=== PATIENT | female | born 1950 | race Caucasian/White ===

== ENCOUNTER 2018-02-10 14:30 | Inpatient (IN) | payer MEDICARE ==
[~2018-02-10] VITALS: Ht 165.1 cm; Wt 93.9 kg
[2018-02-13 15:25] VITALS: BP 149/75
[2018-02-13 16:01] LABS: BASOPHILS % (AUTO) 0.2 % (0.0-5.0); HEMATOCRIT 31.5 % (36-48); LYMPHOCYTES % (AUTO) 50.6 % (21.0-51.0); MEAN CORPUSCULAR HEMOGLOBIN 32.5 pg (27.0-33.0); MEAN CORPUSCULAR HGB CONC 34.8 g/dL (32.0-36.0); MEAN CORPUSCULAR VOLUME 93.3 fL (79-99); MONOCYTES % (AUTO) 7.5 % (3.0-13.0); NEUTROPHILS % (AUTO) 37.7 % (40.0-77.0); NUCLEATED RED BLOOD CELLS 0.1 % (0.0-0.19); PLATELET COUNT (AUTO) 303 K/uL (130-400); RED BLOOD CELL COUNT(AUTO) 3.37 MIL/uL (4.00-5.50); RED CELL DISTRIBUTION WIDTH 14.4 % (11.0-15.5); WHITE BLOOD COUNT (AUTO) 5.1 K/uL (4.8-10.8)
[2018-02-13 16:01] LABS: APPEARANCE,URINE Clear (CLEAR); BILIRUBIN,URINE Negative (NEGATIVE); COLOR,URINE Yellow (YELLOW); GLUCOSE, URINE (UA) Negative (NEGATIVE); KETONES,URINE Negative (NEGATIVE); LEUKOCYTE ESTERASE ,URINE Trace (NEGATIVE); NITRATE,URINE Negative (NEGATIVE); OCCULT BLOOD,URINE Negative (NEGATIVE); PH,URINE 5.5 (5.0-8.0); PROTEIN,URINE Trace (NEGATIVE); UROBILINOGEN,URINE 0.2 mg/dL (0.2-1.0)
[2018-02-13 16:15] LABS: INR 1.01 (0.85-1.15); PARTIAL THROMBOPLASTIN TIME 25.3 SEC (26.3-35.5); PROTHROMBIN TIME 10.6 SEC (9.6-11.6)
[2018-02-13 16:28] LABS: CREATININE 0.7 mg/dL (0.5-1.5); POTASSIUM 3.7 mmol/L (3.5-5.1)
[2018-02-13] MEDS ORDERED: LEVO100T12 PO (16:31)
[2018-02-13] MEDS ORDERED: BACI1TAB3 PO (16:31)
[2018-02-13] MEDS ORDERED: BRIM5DRO OU (16:31)
[2018-02-13] MEDS ORDERED: [UNRECOGNIZED DRUG - CODE] PO (16:31)
[2018-02-13] MEDS ORDERED: [UNRECOGNIZED DRUG - OTHER] OU (16:31)
[2018-02-13] MEDS ORDERED: MULT1CAP32 PO (16:31)
[2018-02-13 16:52] LABS: BACTERIA,URINE Rare /HPF (None Seen); RBC,URINE 0-1 /HPF (0-1); SQUAMOUS EPITHELIAL CELL,UR Rare /HPF (0-2)
[2018-02-16] VITALS (21 sets, daily range): BP systolic 137–169; BP diastolic 60–96
[2018-02-16] MEDS: CEFAZOLIN SODIUM 1 GM VIAL IVP SCH ×3 (09:30→18:19)
[2018-02-16] MEDS ORDERED: LACTATED RINGERS 1000ML 1,000 ML IV ONE (09:47)
[2018-02-16] MEDS ORDERED: CEFAZOLIN SODIUM 1 GM VIAL ONE (09:57)
[2018-02-16] MEDS ORDERED: TRANEXAMIC ACID 1000MG/10ML IV ONE (09:58)
[2018-02-16] MEDS ORDERED: BUPIVACAINE/EPI/PF 0.25% 30ML VIAL IJ ONE (09:58)
[2018-02-16] MEDS ORDERED: CELECOXIB 200 MG CAP ONE (10:49)
[2018-02-16] MEDS ORDERED: ACETAMINOPHEN EXTRA STRENGTH 500 MG TABLET ONE (10:49)
[2018-02-16] MEDS ORDERED: KETOROLAC TROMETHAMINE 15MG/ML ONE (10:49)
[2018-02-16] MEDS ORDERED: OXYCODONE HCL 10 MG TAB.SR.12H PO ONE (10:50)
[2018-02-16] MEDS ORDERED: PROPOFOL 10 MG/ML 20ML VIAL IV ONE (11:51)
[2018-02-16] MEDS ORDERED: GLYCOPYRROLATE 0.2 MG/ML 5 ML VIAL ONE (11:51)
[2018-02-16] MEDS ORDERED: DEXAMETHASONE SOD PHOSPHATE 10MG/ML 1ML VIAL ONE (11:51)
[2018-02-16] MEDS ORDERED: LIDOCAINE PF 2% 5ML ABBOJECT ONE (11:51)
[2018-02-16] MEDS ORDERED: FENTANYL CITRATE PF 50 MCG/1 ML 2ML VIAL ONE (11:52)
[2018-02-16] MEDS ORDERED: MIDAZOLAM HCL 1 MG/ML 2ML VIAL ONE (11:52)
[2018-02-16] MEDS ORDERED: ROPIVACAINE 0.5% 5MG/ML 30ML IJ ONE (12:02)
[2018-02-16] MEDS ORDERED: FERROUS FUMARATE 324 MG TABLET PO PRN (13:45)
[2018-02-16] MEDS ORDERED: POTASSIUM CHLORIDE 10% ELIXIR 20 MEQ/15 ML UDCUP PO PRN (13:45)
[2018-02-16] MEDS ORDERED: ACETAMINOPHEN 325 MG TAB PO PRN (13:45)
[2018-02-16] MEDS ORDERED: POTASSIUM CHLORIDE 20MEQ/100ML 100 ML IV PRN (13:45)
[2018-02-16] MEDS ORDERED: POTASSIUM CHLORIDE 20 MEQ ERTAB PO PRN (13:45)
[2018-02-16] MEDS ORDERED: TRAMADOL HCL 50 MG TABLET PO PRN (13:45)
[2018-02-16] MEDS ORDERED: CALCIUM CARBONATE 500 MG TABLET PO PRN (13:45)
[2018-02-16] MEDS ORDERED: TEMAZEPAM 15 MG CAPSULE PO PRN (13:45)
[2018-02-16] MEDS ORDERED: DiphenhydrAMINE HCL 50 MG/ML VIAL IVP PRN (13:45)
[2018-02-16] MEDS ORDERED: ACETAMINOPHEN EXTRA STRENGTH 500 MG TABLET PO PRN (13:45)
[2018-02-16] MEDS ORDERED: OXYCODONE HCL 5 MG TAB PO PRN (13:45)
[2018-02-16] MEDS ORDERED: LIDOCAINE HCL-MPF 1% 2ML VIAL IVP PRN (13:45)
[2018-02-16] MEDS ORDERED: MEPERIDINE-PF 25 MG/ML SYG ONE (14:44)
[2018-02-16] MEDS: SODIUM CHLORIDE 0.9% 1000ML 1,000 ML IV SCH ×2 (18:19→23:41)
[2018-02-16] MEDS: KETOROLAC TROMETHAMINE 15MG/ML IV PRN ×2 (18:29→23:34)
[2018-02-16] MEDS ORDERED: CEFAZOLIN 2GM / 50 ML 50 ML IV SCH (18:45)
[2018-02-16] MEDS: ONDANSETRON HCL MDV 20ML 2 MG/ML VIAL IVP PRN ×2 (18:45→22:51)
[2018-02-16] MEDS: PREGABALIN 25 MG CAP PO SCH (20:19)
[2018-02-16] MEDS: FAMOTIDINE 20MG TAB 20 MG TAB PO SCH (20:19)
[2018-02-16] MEDS: MULTIVITAMIN TABLET PO SCH (20:19)
[2018-02-16] MEDS: CELECOXIB 200 MG CAP PO SCH (20:19)
[2018-02-16] MEDS: ASPIRIN 325 MG TABLET PO SCH (20:19)
[2018-02-16] MEDS ORDERED: LATANOPROST 2.5 ML DROPS OU SCH (21:00)
[2018-02-16] MEDS: OXYCODONE HCL 5 MG TAB PO PRN (22:52)
[2018-02-17 00:46] VITALS: BP 157/87
[2018-02-17] MEDS: CEFAZOLIN SODIUM 1 GM VIAL IVP SCH (02:34)
[2018-02-17 04:38] VITALS: BP 132/68
[2018-02-17 05:31] LABS: HEMATOCRIT 23.6 % (36-48); MEAN CORPUSCULAR HEMOGLOBIN 33.4 pg (27.0-33.0); MEAN CORPUSCULAR HGB CONC 35.5 g/dL (32.0-36.0); PLATELET COUNT (AUTO) 260 K/uL (130-400); RED BLOOD CELL COUNT(AUTO) 2.51 MIL/uL (4.00-5.50); RED CELL DISTRIBUTION WIDTH 14.3 % (11.0-15.5); WHITE BLOOD COUNT (AUTO) 7.2 K/uL (4.8-10.8)
[2018-02-17 05:41] LABS: CREATININE 0.8 mg/dL (0.5-1.5); POTASSIUM 4.2 mmol/L (3.5-5.1)
[2018-02-17] MEDS ORDERED: LEVOTHYROXINE 100 MCG TABLET PO SCH (07:30)
[2018-02-17 07:41] VITALS: BP 132/67
[2018-02-17] MEDS: FAMOTIDINE 20MG TAB 20 MG TAB PO SCH (08:17)
[2018-02-17] MEDS: CELECOXIB 200 MG CAP PO SCH (08:17)
[2018-02-17] MEDS: ASPIRIN 325 MG TABLET PO SCH (08:17)
[2018-02-17] MEDS: PREGABALIN 25 MG CAP PO SCH (08:17)
[2018-02-17] MEDS: MULTIVITAMIN TABLET PO SCH (08:17)
[2018-02-17] MEDS: OXYCODONE HCL 5 MG TAB PO PRN ×2 (08:17→12:04)
[2018-02-17] MEDS ORDERED: ZINC PO SCH (09:00)
[2018-02-17] MEDS ORDERED: CALCIUM PO SCH (09:00)
[2018-02-17] MEDS ORDERED: TIMOLOL OU SCH (09:00)
[2018-02-17] MEDS ORDERED: POLYETHYLENE GLYCOL 3350 17 GM POWD.PACK PO SCH (09:00)
[2018-02-17] MEDS ORDERED: BRIMONIDINE TARTRATE OU SCH (09:00)
[2018-02-17] MEDS: BACILLUS COAGULANS PO SCH ×2 (09:00→12:00)
[2018-02-17] MEDS ORDERED: MAGNESIUM PO SCH (09:00)
[2018-02-17 10:52] VITALS: BP 136/64
[2018-02-17] MEDS: KETOROLAC TROMETHAMINE 15MG/ML IV PRN (13:36)
[2018-02-17] MEDS ORDERED: ASPI-1012 PO (18:30)
[2018-02-17] MEDS ORDERED: FERR324T10 PO (18:30)
[2018-02-17] MEDS ORDERED: HYDR-309 PO (18:30)
[2018-02-19] MEDS ORDERED: BISACODYL 10 MG SUPP.RECT RC PRN (13:45)
== END 2018-02-17 19:30 | disposition home health service (06) | DRG 470 ==
LOC: EDBD 14:30 → EDSTATUS 02-13 14:30 → DAHIP 02-16 08:54 → 4AH 02-16 15:10
PROVIDERS: ADMIT Orthopaedic Surgery; ATTEND Orthopaedic Surgery
PROC: 0SRD0J9 Replacement of Left Knee Joint with Synthetic Substitute, Cemented, Open Approach (ICD-10-PCS; principal; 2018-02-16 11:52)
DX: M17.12 Unilateral primary osteoarthritis, left knee (principal); E03.9 Hypothyroidism, unspecified; G89.29 Other chronic pain; H40.9 Unspecified glaucoma; Z80.9 Family history of malignant neoplasm, unspecified; Z90.49 Acquired absence of other specified parts of digestive tract; Z90.710 Acquired absence of both cervix and uterus; Z90.10 Acquired absence of unspecified breast and nipple
CPT/HCPCS: 36415; 80048; 81001; 85025; 85027; 85610; 85730; 88305; 88311; 96374; A4218; J0690; J1100; J1885; J2001; J2175; J2250; J2704; J2795; J3010; J3490; J7030; J7120

== ENCOUNTER 2018-12-14 12:14 | Inpatient (IN) | payer MEDICARE | END 2019-01-01 20:24 | LOC: EDH 12:14 → EDHIP 12:43 → 2AH 13:09 | PROC: 0PBB0ZZ Excision of Left Clavicle, Open Approach (ICD-10-PCS; principal; 2018-12-15 15:00) | PROC: 0PB00ZZ Excision of Sternum, Open Approach (ICD-10-PCS; 2018-12-15 15:00) | DX: A41.52 Sepsis due to Pseudomonas (principal); M86.9 Osteomyelitis, unspecified; C90.00 Multiple myeloma not having achieved remission; N18.4 Chronic kidney disease, stage 4 (severe); N17.9 Acute kidney failure, unspecified; I34.0 Nonrheumatic mitral (valve) insufficiency; N18.9 Chronic kidney disease, unspecified; I12.9 Hypertensive chronic kidney disease with stage 1 through stage 4 chronic kidney disease, or unspecified chronic kidney disease; I13.10 Hypertensive heart and chronic kidney disease without heart failure, with stage 1 through stage 4 chronic kidney disease, or unspecified chronic kidney disease; Z16.24 Resistance to multiple antibiotics ==

== ENCOUNTER 2019-02-07 08:09 | Inpatient (IN) | payer MEDICARE | END 2019-02-13 13:55 | disposition home or self-care (01) | LOC: 2DH 08:09 → 2CH 02-09 06:04 → 2AH 02-10 23:37 → 2CV 02-08 16:46 | PROC: 02RG08Z Replacement of Mitral Valve with Zooplastic Tissue, Open Approach (ICD-10-PCS; principal; 2019-02-08 15:51) | DX: I33.0 Acute and subacute infective endocarditis (principal); J96.90 Respiratory failure, unspecified, unspecified whether with hypoxia or hypercapnia; M86.9 Osteomyelitis, unspecified; N18.9 Chronic kidney disease, unspecified; I12.9 Hypertensive chronic kidney disease with stage 1 through stage 4 chronic kidney disease, or unspecified chronic kidney disease; I27.20 Pulmonary hypertension, unspecified; I34.0 Nonrheumatic mitral (valve) insufficiency; I05.9 Rheumatic mitral valve disease, unspecified ==

== ENCOUNTER → 2019-03-18 | Outpatient (CLI) | payer MEDICARE ==
[~2019-03-18] MED LIST: AMLO5TAB9 PO; CYCL5TAB PO; FERR325T22 PO; LEVO100T12 PO; MULT1CAP32 PO; PANT40TA25 PO; VALA500T38 PO
== END | disposition home or self-care (01) ==
LOC: SHCH 13:44
PROVIDERS: ATTEND Internal Medicine Cardiovascular Disease
DX: I34.0 Nonrheumatic mitral (valve) insufficiency (principal); I10 Essential (primary) hypertension; Z95.2 Presence of prosthetic heart valve
CPT/HCPCS: 93306

== ENCOUNTER 2020-02-16 13:22 | Inpatient (IN) | payer MEDICARE ==
[~2020-02-16] VITALS: Ht 167.6 cm; Wt 84.1 kg
[~2020-02-16 13:22] MED LIST changes: -VALA500T38 PO; +VALA500T42 PO
[2020-02-16 14:09] LABS: BASOPHILS % (AUTO) 0.5 % (0.0-5.0); EOSINOPHILS % (AUTO) 3.3 % (0.0-8.0); LYMPHOCYTES % (AUTO) 28.2 % (21.0-51.0); MEAN CORPUSCULAR HEMOGLOBIN 37.9 pg (27.0-33.0); MEAN CORPUSCULAR HGB CONC 33.5 g/dL (32.0-36.0); MEAN CORPUSCULAR VOLUME 112.9 fL (79-99); MONOCYTES % (AUTO) 13.3 % (3.0-13.0); NEUTROPHILS % (AUTO) 52.9 % (40.0-77.0); PLATELET COUNT (AUTO) 54 K/uL (130-400)
[2020-02-16 14:21] LABS: PARTIAL THROMBOPLASTIN TIME 29.4 SEC (26.3-35.5); PROTHROMBIN TIME 10.8 SEC (9.6-11.6)
[2020-02-16 14:23] LABS: CREATININE 3.4 mg/dL (0.5-1.5); POTASSIUM 4.2 mmol/L (3.5-5.1)
[2020-02-16 14:29] LABS: ALBUMIN 2.9 g/dL (3.5-5.0); BILIRUBIN,TOTAL 0.8 mg/dL (0.2-1.0); TOTAL PROTEIN, SERUM 6.9 g/dL (6.0-8.3)
[2020-02-16 14:33] LABS: HEMATOCRIT 15.8 % (36-48)
[2020-02-16 14:34] LABS: B-TYPE NATRIURETIC PEPTIDE 414 pg/mL (0-100)
[2020-02-16 15:09] LABS: BAND NEUTROPHILS % (MANUAL) 9 % (0-2); EOSINOPHILS % (MANUAL) 6 % (1-6); LYMPHOCYTES % (MANUAL) 30 % (22-44); MAN.DIFF COMMENT-IMPRESSION MANUAL DIFFERENTIAL; MONOCYTES % (MANUAL) 7 % (2-9); SEGMENTED NEUTROPHILS % 48 % (40-70)
[2020-02-16 15:11] LABS: PLATELET MORPHOLOGY COMMENT MARKED DECREASE
[2020-02-16] MEDS ORDERED: ONDANSETRON HCL 4 MG/2 ML VIAL IVP PRN (15:15)
[2020-02-16] MEDS ORDERED: ACETAMINOPHEN 325 MG TAB PO PRN (15:15)
[2020-02-16 17:59] VITALS: BP 137/82
--- NOTE | 2020-02-16 18:35 | NUR ---
NOTE CAME IN FROM HOME WITH DX SYMPTOMATIC ANEMIA. SHE HAS HBG 5.3 WILL GET ONE UNIT OF PRBC. SHE HAS ORDERS FOR CONSULTS WITH NEPHROLOGY AND ONCOLOGY. STABLE UPON ARRIVAL AND SHE HAS GOTTEN BLOOD TRANSFUSED BEFORE. SHE HAS O2 AT 2LNC BECAUSE SLIGHT SOB.
[2020-02-16] MEDS ORDERED: LENA5CAP PO (18:41)
[2020-02-16] MEDS ORDERED: LEVO112T7 PO (18:41)
[2020-02-16] MEDS ORDERED: SODIUM CHLORIDE 0.9% 250 ML IV ONE (18:44)
[2020-02-16 18:55] VITALS: BP_SYST 128; BP_SYST 144; BP_DIAS 55; BP_DIAS 68
[2020-02-16 19:00] VITALS: BP 128/55
[2020-02-16 19:29] LABS: RETICULOCYTE % (AUTO) 7.52 % (0.42-2.23)
[2020-02-16 19:30] VITALS: BP 127/59
[2020-02-16 20:23] LABS: THYROID STIMULATING HORMONE 0.86 uIU/mL (0.36-3.74); URIC ACID 7.9 mg/dL (2.6-7.2)
[2020-02-16] MEDS: FAMOTIDINE/PF 20 MG/2 ML VIAL IV SCH (21:45)
[2020-02-16 22:49] LABS: HEMATOCRIT 18.3 % (36-48)
[2020-02-16 23:17] VITALS: BP 118/53
[2020-02-17 02:40] LABS: % IRON SATURATION 63.6 % (22-44)
[2020-02-17 03:15] VITALS: BP 136/68
[2020-02-17 05:45] LABS: BASOPHILS % (AUTO) 0.8 % (0.0-5.0); EOSINOPHILS % (AUTO) 3.9 % (0.0-8.0); HEMATOCRIT 21.1 % (36-48); LYMPHOCYTES % (AUTO) 26.3 % (21.0-51.0); MEAN CORPUSCULAR HEMOGLOBIN 34.5 pg (27.0-33.0); MEAN CORPUSCULAR HGB CONC 33.6 g/dL (32.0-36.0); MEAN CORPUSCULAR VOLUME 102.4 fL (79-99); MONOCYTES % (AUTO) 13.4 % (3.0-13.0); NEUTROPHILS % (AUTO) 54.2 % (40.0-77.0); NUCLEATED RED BLOOD CELLS 9.1 % (0.0-0.19); PLATELET COUNT (AUTO) 44 K/uL (130-400); RED BLOOD CELL COUNT(AUTO) 2.06 MIL/uL (4.00-5.50); RED CELL DISTRIBUTION WIDTH 20.1 % (11.0-15.5); WHITE BLOOD COUNT (AUTO) 6.4 K/uL (4.8-10.8)
[2020-02-17 06:02] LABS: CREATININE 3.4 mg/dL (0.5-1.5)
[2020-02-17 08:00] VITALS: BP 131/66
[2020-02-17] MEDS: LENALIDOMIDE 5 MG PO SCH (09:00)
[2020-02-17] MEDS ORDERED: PHARMACY COMMUNICATION MISC SCH (09:00)
[2020-02-17] MEDS ORDERED: EPOETIN ALFA 10,000 UNIT/ML VIAL SQ SCH (09:30)
[2020-02-17] MEDS ORDERED: DEXAMETHASONE 10MG/ML 1ML VIAL 10 MG in SODIUM CHLORIDE 0.9% 50 ML IV SCH (09:30)
[2020-02-17] MEDS ORDERED: DEXAMETHASONE SOD PHOSPHATE 10MG/ML 1ML VIAL ONE (11:00)
[2020-02-17] MEDS ORDERED: SODIUM CHLORIDE 0.9% 250 ML IV ONE (11:00)
[2020-02-17 11:50] VITALS: BP 138/67
--- NOTE | 2020-02-17 12:43 | NUR ---
ANTHONY CRUZ HAS COME IN TO SEE PATIENT CONSULT FOR BRADYCARDIA WITH 2.2 SECOND PAUSE EARLIER THIS AM. PATIENT IS REQUESTING TO LEAVE AFTER BLOOD TRANSFUSION. DR CRUZ OKAYED FOR DC ONCE HGB IS HIGHER AND PATIENT IS ASYMPTOMATIC. SHE UNDERWENT CT SCAN ABDOMEN AND PELVIS FOR EVALUATION OF BILATERAL HYDRONEPHROSIS. BLADDER SCAN WAS PERFORMED EARLIER POSTVOIDAL AND SHE HAD 18CC RESIDUAL ACCORDING TO SCANNER. DR PAL INFORMED. DR FENTON NEPHROLOGY CAME BY ABOUT 30 MINUTES AGO WELL AND HE RECOMMENDED CT TO EVALUATE NEED FOR NEPHROSTOMY TUBES IF NEEDED.
[2020-02-17] MEDS: PANTOPRAZOLE SODIUM 40 MG TABLET.DR PO SCH (13:14)
[2020-02-17] MEDS: MULTIVITAMIN TABLET PO SCH (13:14)
[2020-02-17] MEDS ORDERED: FUROSEMIDE 10 MG/ML 4ML VIAL IV SCH (14:30)
[2020-02-17 16:00] VITALS: BP 155/77
--- NOTE | 2020-02-17 17:05 | NUR ---
[facility] CM spoke to pt's spouse Orlando Son [phone] discussed dc plans. Pt is independent prior to admission, lives at home with spouse, winter. Denies any equipments/services. Feels safe to go back home, still drives, spouse able to assist with transportation and needs as necessary. DC plan to home once stable. CM to cont to follow up. Addendum: 02/17/20 at 1707 by SHERIDAN RODRIGUEZ LVN CM Amended: Links added.
[2020-02-17 19:57] VITALS: BP 132/68
[2020-02-17] MEDS: FAMOTIDINE/PF 20 MG/2 ML VIAL IV SCH (21:18)
[2020-02-17 23:01] VITALS: BP 135/65
[2020-02-18] VITALS (13 sets, daily range): BP systolic 110–162; BP diastolic 52–86
[2020-02-18 00:35] LABS: APPEARANCE,URINE Clear (CLEAR); BILIRUBIN,URINE Negative (NEGATIVE); COLOR,URINE Yellow (YELLOW); GLUCOSE, URINE (UA) Negative (NEGATIVE); KETONES,URINE Negative (NEGATIVE); LEUKOCYTE ESTERASE ,URINE Negative (NEGATIVE); NITRATE,URINE Negative (NEGATIVE); OCCULT BLOOD,URINE Negative (NEGATIVE); PH,URINE 5.5 (5.0-8.0); PROTEIN,URINE Negative (NEGATIVE); UROBILINOGEN,URINE 0.2 mg/dL (0.2-1.0)
[2020-02-18 00:39] LABS: CREATININE,URINE RANDOM 27 mg/dL (30-135); PROTEIN,URINE RANDOM 25.7 mg/dL (0-11.9)
[2020-02-18 03:40] LABS: HEMATOCRIT 24.5 % (36-48); MEAN CORPUSCULAR HEMOGLOBIN 32.7 pg (27.0-33.0); MEAN CORPUSCULAR HGB CONC 33.5 g/dL (32.0-36.0); MEAN CORPUSCULAR VOLUME 97.6 fL (79-99); NUCLEATED RED BLOOD CELLS 8.7 % (0.0-0.19); RED BLOOD CELL COUNT(AUTO) 2.51 MIL/uL (4.00-5.50); WHITE BLOOD COUNT (AUTO) 6.3 K/uL (4.8-10.8)
[2020-02-18 05:33] LABS: CREATININE 3.4 mg/dL (0.5-1.5)
[2020-02-18] MEDS: LENALIDOMIDE 5 MG PO SCH (09:00)
[2020-02-18 09:10] LABS: INR 0.99 (0.85-1.15); PROTHROMBIN TIME 10.7 SEC (9.6-11.6)
[2020-02-18] MEDS: MULTIVITAMIN TABLET PO SCH (09:14)
[2020-02-18] MEDS: PANTOPRAZOLE SODIUM 40 MG TABLET.DR PO SCH (09:14)
[2020-02-18] MEDS: LEVOTHYROXINE 112 MCG TABLET PO SCH (09:14)
[2020-02-18] MEDS ORDERED: SODIUM CHLORIDE 0.9% 250 ML IV ONE (10:48)
[2020-02-18] MEDS: VALACYCLOVIR HCL 500 MG TABLET PO SCH ×2 (10:57→10:58)
[2020-02-18] MEDS ORDERED: LIDOCAINE HCL 1% MDV 50ML VIAL ONE (11:13)
[2020-02-18] MEDS ORDERED: FENTANYL CITRATE PF 50 MCG/1 ML 2ML VIAL ONE (11:13)
[2020-02-18] MEDS ORDERED: MIDAZOLAM HCL 1 MG/ML 2ML VIAL ONE (11:13)
[2020-02-18] MEDS ORDERED: IODIXANOL 320 MG/ML 100 ML VIAL ONE (12:32)
[2020-02-18] MEDS ORDERED: PHARMACY COMMUNICATION MISC SCH (14:00)
[2020-02-18] MEDS: ACETAMINOPHEN-CODEINE 300/30MG TAB PO PRN (18:04)
[2020-02-18] MEDS: FAMOTIDINE/PF 20 MG/2 ML VIAL IV SCH (20:19)
[2020-02-18] MEDS: SODIUM CHLORIDE 0.9% 10 ML VIAL INJ SCH (20:19)
--- NOTE | 2020-02-18 20:31 | NUR ---
Patient sitting up in chair,alert and oriented,denies pain or any discomfort.Right hand IV removed dressing applied.Right nephrostomy tube flushed with 10 cc saline and pt tolerated well.
[2020-02-19 04:04] VITALS: BP 131/63
[2020-02-19] MEDS: LEVOTHYROXINE 112 MCG TABLET PO SCH (06:42)
[2020-02-19 07:58] VITALS: BP 124/60
[2020-02-19] MEDS: SODIUM CHLORIDE 0.9% 10 ML VIAL INJ SCH ×2 (09:11→21:09)
[2020-02-19] MEDS: VALACYCLOVIR HCL 500 MG TABLET PO SCH (09:11)
[2020-02-19] MEDS: MULTIVITAMIN TABLET PO SCH (09:11)
[2020-02-19] MEDS: PANTOPRAZOLE SODIUM 40 MG TABLET.DR PO SCH (09:11)
[2020-02-19] MEDS: LENALIDOMIDE 5 MG PO SCH (09:11)
[2020-02-19 11:36] VITALS: BP 124/62
[2020-02-19 16:00] VITALS: BP 129/71
[2020-02-19 20:16] VITALS: BP 129/67
[2020-02-19] MEDS: FAMOTIDINE/PF 20 MG/2 ML VIAL IV SCH (21:09)
[2020-02-20 00:16] VITALS: BP 133/71
[2020-02-20 04:01] LABS: BASOPHILS % (AUTO) 0.8 % (0.0-5.0); EOSINOPHILS % (AUTO) 6.2 % (0.0-8.0); HEMATOCRIT 25.8 % (36-48); LYMPHOCYTES % (AUTO) 33.6 % (21.0-51.0); MEAN CORPUSCULAR HEMOGLOBIN 33.8 pg (27.0-33.0); MEAN CORPUSCULAR HGB CONC 34.5 g/dL (32.0-36.0); MEAN CORPUSCULAR VOLUME 98.1 fL (79-99); MONOCYTES % (AUTO) 15.1 % (3.0-13.0); NEUTROPHILS % (AUTO) 42.9 % (40.0-77.0); NUCLEATED RED BLOOD CELLS 10.3 % (0.0-0.19); PLATELET COUNT (AUTO) 57 K/uL (130-400); RED BLOOD CELL COUNT(AUTO) 2.63 MIL/uL (4.00-5.50); RED CELL DISTRIBUTION WIDTH 19.5 % (11.0-15.5)
[2020-02-20 04:16] VITALS: BP 120/52
[2020-02-20 04:18] LABS: CREATININE 3.3 mg/dL (0.5-1.5); POTASSIUM 3.7 mmol/L (3.5-5.1)
[2020-02-20 05:02] LABS: BAND NEUTROPHILS % (MANUAL) 1 % (0-2); EOSINOPHILS % (MANUAL) 4 % (1-6); LYMPHOCYTES % (MANUAL) 41 % (22-44); MONOCYTES % (MANUAL) 12 % (2-9); REACTIVE LYMPHOCYTES 2 % (0-0); SEGMENTED NEUTROPHILS % 40 % (40-70)
[2020-02-20 05:03] LABS: MAN.DIFF COMMENT-IMPRESSION MANUAL DIFFERENTIAL; PLATELET MORPHOLOGY COMMENT DECREASED
[2020-02-20] MEDS: LEVOTHYROXINE 112 MCG TABLET PO SCH (06:07)
[2020-02-20 08:00] VITALS: BP 125/70
[2020-02-20] MEDS: PANTOPRAZOLE SODIUM 40 MG TABLET.DR PO SCH (08:44)
[2020-02-20] MEDS: MULTIVITAMIN TABLET PO SCH (08:44)
[2020-02-20] MEDS: VALACYCLOVIR HCL 500 MG TABLET PO SCH (08:44)
[2020-02-20] MEDS: SODIUM CHLORIDE 0.9% 10 ML VIAL INJ SCH (08:45)
[2020-02-20] MEDS: ACETAMINOPHEN-CODEINE 300/30MG TAB PO PRN (08:45)
[2020-02-20] MEDS: LENALIDOMIDE 5 MG PO SCH (08:46)
[2020-02-20 11:37] VITALS: BP 131/74
--- NOTE | 2020-02-20 12:12 | NUR ---
PER ATTENDING ROTARY PLANER SET UP OPERATOR SAHRA SANCHEZ...PT TO BE DISCHARGED HOME TODAY. I HAVE INORMED PT TO FOLLOWUP WITH DR MARTINEZ AND DR BRENNER IN AM. SHE UNDERSTANDS IMPORTANCE OF THIS. I ALSO ENCOURAGED HER TO RETURN TO ER IF SHE WORSENS. TO REPORT ANY FEVER OR IF NEPHROSTOMY TUBE STOPS DRAINING TO MD'S. VERBALIZES UNDERSTANDING
--- NOTE | 2020-02-20 15:00 | NUR ---
PRINTED AND VERBAL DISCHARGE INSTRUCTION GIVEN VERBALIZES UNDERSTANDING. PT TAUGHT HOW TO EMPTY NEPHROSTOMY,SHE GAVE DEMO. IV CATH REMOVED FROM RT AC INTACT. PENDING RIDE HOME
--- NOTE | 2020-02-20 15:40 | NUR ---
TO CAR VIA WHEELCHAIR
== END 2020-02-20 15:50 | disposition home or self-care (01) | DRG 841 ==
LOC: EDH 13:22 → EDHIP 14:47 → 4BH 17:50
PROVIDERS: ADMIT Internal Medicine; ATTEND Internal Medicine
PROC: 0T9030Z Drainage of Right Kidney with Drainage Device, Percutaneous Approach (ICD-10-PCS; principal; 2020-02-16)
DX: C90.00 Multiple myeloma not having achieved remission (principal); N17.9 Acute kidney failure, unspecified; D61.818 Other pancytopenia; N18.9 Chronic kidney disease, unspecified; D63.0 Anemia in neoplastic disease
CPT/HCPCS: 10030; 36415; 36430; 50432; 71045; 74176; 76700; 80048; 80053; 81003; 82232; 82550; 82570; 82607; 82746; 83010; 83540; 83550; 83880; 84156; 84443; 84484; 84550; 85014; 85018; 85025; 85027; 85045; 85610; 85730; 86850; 86900; 86901; 86922; 93005; 99156; 99157; 99291; C1769; C1894; G0378; J0885; J1100; J1644; J1940; J2250; J3010; J3490; J7030; P9016; P9034; Q9967

== ENCOUNTER 2020-02-23 08:38 | Emergency (ER) | payer MEDICARE ==
[~2020-02-23 08:38] MED LIST changes: -AMLO5TAB9 PO; -CYCL5TAB PO; -FERR325T22 PO; +LENA5CAP PO; -LEVO100T12 PO; +LEVO112T7 PO; -PANT40TA25 PO; +PANT40TA54 PO
[2020-02-23 09:15] LABS: BASOPHILS % (AUTO) 0.9 % (0.0-5.0); EOSINOPHILS % (AUTO) 6.3 % (0.0-8.0); HEMATOCRIT 23.8 % (36-48); LYMPHOCYTES % (AUTO) 47.5 % (21.0-51.0); MEAN CORPUSCULAR HEMOGLOBIN 34.2 pg (27.0-33.0); MEAN CORPUSCULAR HGB CONC 34.5 g/dL (32.0-36.0); MEAN CORPUSCULAR VOLUME 99.2 fL (79-99); MONOCYTES % (AUTO) 12.7 % (3.0-13.0); NEUTROPHILS % (AUTO) 31.5 % (40.0-77.0); NUCLEATED RED BLOOD CELLS 3.7 % (0.0-0.19); PLATELET COUNT (AUTO) 41 K/uL (130-400); RED CELL DISTRIBUTION WIDTH 19.8 % (11.0-15.5); WHITE BLOOD COUNT (AUTO) 4.6 K/uL (4.8-10.8)
[2020-02-23 09:23] LABS: CREATININE 3.6 mg/dL (0.5-1.5); POTASSIUM 3.6 mmol/L (3.5-5.1)
[2020-02-23 09:26] LABS: INR 1.04 (0.85-1.15); PARTIAL THROMBOPLASTIN TIME 30.6 SEC (26.3-35.5); PROTHROMBIN TIME 11.2 SEC (9.6-11.6)
[2020-02-23 09:29] LABS: BILIRUBIN,TOTAL 0.8 mg/dL (0.2-1.0)
== END 2020-02-23 11:44 | disposition home or self-care (01) ==
LOC: EDH 08:38
DX: N13.30 Unspecified hydronephrosis (principal); C90.00 Multiple myeloma not having achieved remission; D64.9 Anemia, unspecified; N18.9 Chronic kidney disease, unspecified
CPT/HCPCS: 36415; 76770; 80053; 85025; 85610; 85730

== ENCOUNTER 2020-03-16 12:53 | Inpatient (IN) | payer MEDICARE ==
[~2020-03-16] VITALS: Ht 165.1 cm; Wt 83.1 kg
[2020-03-16 13:41] LABS: BASOPHILS % (AUTO) 0.3 % (0.0-5.0); EOSINOPHILS % (AUTO) 1.3 % (0.0-8.0); LYMPHOCYTES % (AUTO) 30.8 % (21.0-51.0); MEAN CORPUSCULAR HEMOGLOBIN 32.5 pg (27.0-33.0); MEAN CORPUSCULAR HGB CONC 33.5 g/dL (32.0-36.0); MEAN CORPUSCULAR VOLUME 96.9 fL (79-99); MONOCYTES % (AUTO) 13.1 % (3.0-13.0); NEUTROPHILS % (AUTO) 52.4 % (40.0-77.0); NUCLEATED RED BLOOD CELLS 20.4 % (0.0-0.19); PLATELET COUNT (AUTO) 96 K/uL (130-400); RED BLOOD CELL COUNT(AUTO) 1.91 MIL/uL (4.00-5.50); RED CELL DISTRIBUTION WIDTH 23.8 % (11.0-15.5); WHITE BLOOD COUNT (AUTO) 9.1 K/uL (4.8-10.8)
[2020-03-16 13:50] LABS: HEMATOCRIT 18.5 % (36-48)
[2020-03-16 13:56] LABS: INR 1.16 (0.85-1.15); PARTIAL THROMBOPLASTIN TIME 32.7 SEC (26.3-35.5); PROTHROMBIN TIME 12.5 SEC (9.6-11.6)
[2020-03-16 14:27] LABS: CREATININE 3.3 mg/dL (0.5-1.5); POTASSIUM 4.7 mmol/L (3.5-5.1)
[2020-03-16 14:32] LABS: ALBUMIN 2.6 g/dL (3.5-5.0); BILIRUBIN,TOTAL 1.8 mg/dL (0.2-1.0); TOTAL PROTEIN, SERUM 6.8 g/dL (6.0-8.3)
[2020-03-16 15:20] LABS: RETICULOCYTE % (AUTO) 6.41 % (0.42-2.23)
[2020-03-16 16:00] LABS: % IRON SATURATION 88.9 % (22-44)
[2020-03-16 16:28] LABS: EOSINOPHILS % (MANUAL) 1 % (1-6); LYMPHOCYTES % (MANUAL) 42 % (22-44); MAN.DIFF COMMENT-IMPRESSION MANUAL DIFFERENTIAL; MONOCYTES % (MANUAL) 10 % (2-9); SEGMENTED NEUTROPHILS % 47 % (40-70)
[2020-03-16 16:29] LABS: PLATELET MORPHOLOGY COMMENT DECREASED
--- NOTE | 2020-03-16 16:30 | NUR ---
RIGHT SIDE NEPRO TUBE Addendum: 03/16/20 at 1720 by VAIBHAV KWONG RN RN Amended: Links added.
[2020-03-16 16:53] VITALS: BP 135/58
[2020-03-16] MEDS: SODIUM CHLORIDE 0.9% 1000ML 1,000 ML IV SCH (17:45)
[2020-03-16] MEDS ORDERED: SODIUM CHLORIDE 0.9% 500ML 500 ML IV ONE (18:25)
[2020-03-16 19:30] VITALS: BP 132/61
--- NOTE | 2020-03-16 21:35 | NUR ---
Blood transfusion of 1 unit PRBC's completed without any s/s of complications. Tolerated well.
--- NOTE | 2020-03-16 21:55 | NUR ---
Second unit of PRBC Second unit of PRBC taken from Lab and verified at bedside with another corporate staff accountant. VS taken per hospital protocol. BT started at 2200. BT continues without any s/s of transfusion reaction. VS remained WNL and been monitored per hospital protocol. 0100: BT completed. Tolerated the procedure well.
--- NOTE | 2020-03-16 22:00 | NUR ---
On-call hospitalist ( TIANNA Sanchez) was called for pain medication. Ms. Pan then came to assess pt with an order of Morphine 2 mg q4h prn for pain scale of 6-10. - carried out.
[2020-03-16] MEDS: MORPHINE SULFATE 2 MG/ML 1ML SYG IVP PRN (22:17)
[2020-03-16 23:55] VITALS: BP 137/65
[2020-03-17 03:56] VITALS: BP 127/66
[2020-03-17 05:45] LABS: HEMATOCRIT 27.6 % (36-48)
[2020-03-17 07:45] LABS: CREATININE 3.1 mg/dL (0.5-1.5); POTASSIUM 4.7 mmol/L (3.5-5.1)
[2020-03-17 08:00] VITALS: BP 128/67
[2020-03-17] MEDS: EPOETIN ALFA 10,000 UNIT/ML VIAL SQ SCH ×2 (09:53→10:01)
[2020-03-17] MEDS: SODIUM CHLORIDE 0.9% 1000ML 1,000 ML IV SCH ×2 (10:25→21:17)
--- NOTE | 2020-03-17 11:24 | NUR ---
BLOOD SUGAR 126. DO NOT SEE HER ON S/S
[2020-03-17 12:00] VITALS: BP 150/76
[2020-03-17 14:09] LABS: HEMATOCRIT 26.9 % (36-48)
[2020-03-17] MEDS: MORPHINE SULFATE 2 MG/ML 1ML SYG IVP PRN ×2 (14:51→19:53)
--- NOTE | 2020-03-17 15:00 | NUR ---
MEDICATED FOR BACK PAIN.
[2020-03-17 16:00] VITALS: BP 150/76
[2020-03-17 21:01] VITALS: BP 140/72
[2020-03-17 21:31] LABS: HEMATOCRIT 27.5 % (36-48)
[2020-03-17] MEDS ORDERED: SIMETHICONE 80 MG TAB.CHEW PO PRN (22:30)
[2020-03-18 01:03] VITALS: BP 140/69
[2020-03-18 01:22] VITALS: BP 140/69
[2020-03-18] MEDS: MORPHINE SULFATE 2 MG/ML 1ML SYG IVP PRN ×2 (01:38→05:39)
[2020-03-18 04:54] VITALS: BP 156/86
[2020-03-18 05:32] LABS: HEMATOCRIT 27.4 % (36-48); MEAN CORPUSCULAR HEMOGLOBIN 30.9 pg (27.0-33.0); MEAN CORPUSCULAR HGB CONC 33.6 g/dL (32.0-36.0); MEAN CORPUSCULAR VOLUME 91.9 fL (79-99); NUCLEATED RED BLOOD CELLS 13.3 % (0.0-0.19); PLATELET COUNT (AUTO) 66 K/uL (130-400); RED BLOOD CELL COUNT(AUTO) 2.98 MIL/uL (4.00-5.50); RED CELL DISTRIBUTION WIDTH 21.1 % (11.0-15.5); WHITE BLOOD COUNT (AUTO) 8.5 K/uL (4.8-10.8)
[2020-03-18 05:47] LABS: CREATININE 2.8 mg/dL (0.5-1.5); POTASSIUM 4.4 mmol/L (3.5-5.1)
[2020-03-18 06:06] LABS: BAND NEUTROPHILS % (MANUAL) 2 % (0-2); EOSINOPHILS % (MANUAL) 2 % (1-6); LYMPHOCYTES % (MANUAL) 26 % (22-44); MONOCYTES % (MANUAL) 15 % (2-9); SEGMENTED NEUTROPHILS % 55 % (40-70)
[2020-03-18 06:07] LABS: MAN.DIFF COMMENT-IMPRESSION MANUAL DIFFERENTIAL; PLATELET MORPHOLOGY COMMENT DECREASED
[2020-03-18] MEDS ORDERED: LEVOTHYROXINE 112 MCG TABLET PO SCH (06:30)
[2020-03-18 08:00] VITALS: BP 172/62
--- NOTE | 2020-03-18 08:00 | NUR ---
AM SHIFT ASSESSMENT.
--- NOTE | 2020-03-18 08:24 | NUR ---
PATIENT UPDATE Pt asking for pain meds the whole night, morphine 2mg iv given almost every 4 hrs per request for pain in the lower back, pain in the abdomen as well as pain in the abdomen. Ms. Pan TENDERIZER TENDER called for orders for feeling accumulation of a lot of gas causing the abd pain, simethicone tab given. Pending consult with for the mult myeloma.
[2020-03-18] MEDS ORDERED: VALACYCLOVIR HCL 500 MG TABLET PO SCH (09:00)
[2020-03-18] MEDS ORDERED: MULTIVITAMIN TABLET PO SCH (09:00)
[2020-03-18] MEDS ORDERED: PANTOPRAZOLE SODIUM 40 MG TABLET.DR PO SCH (09:00)
--- NOTE | 2020-03-18 10:00 | NUR ---
SITTING IN CHAIR, C/O OF NECK PAIN.
[2020-03-18 11:55] VITALS: BP 161/84
--- NOTE | 2020-03-18 14:15 | NUR ---
DISCHARGE ORDERS IN PLACE. DISCHARGED USING TEACH BACK.SALINE LOCK REMOVED AND INST. GIVEN. WILL FOLLOW UP WITH APPTS. INST.SPOUSE WAITING DOWNSTAIRS, WHEELED DOWN PER PCP
[2020-03-22] MEDS ORDERED: SODIUM CHLORIDE 0.9% 1000ML 1,000 ML IV SCH ×2 (16:21→16:30)
[2020-03-22] MEDS ORDERED: MAG HYDROX/AL HYDROX/SIMETH ES 30 ML SUSP UDCUP PO PRN (16:30)
[2020-03-22] MEDS ORDERED: MORPHINE SULFATE 2 MG/ML 1ML SYG IM PRN (16:30)
[2020-03-22] MEDS ORDERED: LACTULOSE 20 GM/30 ML UDCUP PO PRN (16:30)
[2020-03-22] MEDS ORDERED: GUAIFENESIN-DM 200/20 MG 10 ML PO PRN (16:30)
[2020-03-22] MEDS ORDERED: DIPHENHYDRAMINE HCL 25 MG CAPSULE PO PRN (16:30)
[2020-03-22] MEDS ORDERED: NITROGLYCERIN 0.4 MG SL TAB SL PRN (16:30)
[2020-03-22] MEDS ORDERED: ACETAMINOPHEN-CODEINE 300/30MG TAB PO PRN (16:30)
[2020-03-22] MEDS ORDERED: MORPHINE SULFATE 4 MG/1ML SYG IV PRN (16:30)
[2020-03-22] MEDS ORDERED: DiphenhydrAMINE HCL 50 MG/ML VIAL IV PRN (16:30)
[2020-03-22] MEDS ORDERED: ONDANSETRON HCL 4 MG/2 ML VIAL IV PRN (16:30)
[2020-03-22] MEDS ORDERED: ACETAMINOPHEN 325 MG TAB PO PRN ×2 (16:30)
[2020-03-22 17:53] LABS: AMYLASE 40 U/L (25-115); BILIRUBIN,DIRECT 0.2 mg/dL (0.0-0.3); LIPASE 163 U/L (114-286)
[2020-03-22] MEDS ORDERED: HEPARIN SODIUM 5000UNIT/ML 1ML VIAL SQ SCH (21:00)
[2020-03-24 06:16] LABS: BASOPHILS % (AUTO) 0.7 % (0.0-5.0); HEMATOCRIT 37.7 % (36-48); LYMPHOCYTES % (AUTO) 23.7 % (21.0-51.0); MEAN CORPUSCULAR HEMOGLOBIN 31.2 pg (27.0-33.0); MEAN CORPUSCULAR HGB CONC 32.4 g/dL (32.0-36.0); MEAN CORPUSCULAR VOLUME 96.4 fL (79-99); MONOCYTES % (AUTO) 11.1 % (3.0-13.0); NEUTROPHILS % (AUTO) 59.1 % (40.0-77.0); PLATELET COUNT (AUTO) 143 K/uL (130-400); RED BLOOD CELL COUNT(AUTO) 3.91 MIL/uL (4.00-5.50); RED CELL DISTRIBUTION WIDTH 12.9 % (11.0-15.5); WHITE BLOOD COUNT (AUTO) 4.6 K/uL (4.8-10.8)
[2020-03-24 06:39] LABS: ALBUMIN 3.5 g/dL (3.5-5.0); BILIRUBIN,TOTAL 0.6 mg/dL (0.2-1.0); CREATININE 0.9 mg/dL (0.5-1.5); POTASSIUM 4.1 mmol/L (3.5-5.1); TOTAL PROTEIN, SERUM 6.6 g/dL (6.0-8.3)
[2020-03-25 05:13] LABS: EOSINOPHILS % (AUTO) 5.4 % (0.0-8.0); HEMATOCRIT 40.3 % (36-48); LYMPHOCYTES % (AUTO) 29.3 % (21.0-51.0); MEAN CORPUSCULAR HEMOGLOBIN 32.5 pg (27.0-33.0); MEAN CORPUSCULAR HGB CONC 33.5 g/dL (32.0-36.0); MEAN CORPUSCULAR VOLUME 96.9 fL (79-99); MONOCYTES % (AUTO) 10.3 % (3.0-13.0); NEUTROPHILS % (AUTO) 53.2 % (40.0-77.0); PLATELET COUNT (AUTO) 169 K/uL (130-400); RED BLOOD CELL COUNT(AUTO) 4.16 MIL/uL (4.00-5.50); RED CELL DISTRIBUTION WIDTH 12.8 % (11.0-15.5); WHITE BLOOD COUNT (AUTO) 6.3 K/uL (4.8-10.8)
[2020-03-25 05:32] LABS: ALBUMIN 3.9 g/dL (3.5-5.0); BILIRUBIN,TOTAL 0.7 mg/dL (0.2-1.0); POTASSIUM 4.2 mmol/L (3.5-5.1); TOTAL PROTEIN, SERUM 7.3 g/dL (6.0-8.3)
== END 2020-03-18 14:15 | disposition home or self-care (01) | DRG 841 ==
LOC: EDH 12:53 → EDHIP 15:19 → 3AH 16:27
PROVIDERS: ADMIT Internal Medicine; ATTEND Internal Medicine
PROC: 30233N1 Transfusion of Nonautologous Red Blood Cells into Peripheral Vein, Percutaneous Approach (ICD-10-PCS; principal; 2020-03-16)
DX: C90.00 Multiple myeloma not having achieved remission (principal); N17.9 Acute kidney failure, unspecified; N18.4 Chronic kidney disease, stage 4 (severe); D61.818 Other pancytopenia; D63.0 Anemia in neoplastic disease; M19.90 Unspecified osteoarthritis, unspecified site; E87.8 Other disorders of electrolyte and fluid balance, not elsewhere classified; Z93.6 Other artificial openings of urinary tract status; Z85.3 Personal history of malignant neoplasm of breast; Z85.828 Personal history of other malignant neoplasm of skin; Z90.11 Acquired absence of right breast and nipple; Z82.0 Family history of epilepsy and other diseases of the nervous system; Z82.5 Family history of asthma and other chronic lower respiratory diseases; Z84.89 Family history of other specified conditions; Z80.1 Family history of malignant neoplasm of trachea, bronchus and lung; Z80.0 Family history of malignant neoplasm of digestive organs
CPT/HCPCS: 36415; 36430; 71045; 80048; 80053; 82150; 82248; 82270; 82550; 82607; 82728; 82948; 82977; 83690; 84484; 85014; 85018; 85025; 85610; 85730; 86850; 86900; 86901; 86922; 93005; G0378; J0885; J7030; J7040; P9016

== ENCOUNTER 2020-03-22 14:17 | Inpatient (IN) | payer MEDICARE ==
[~2020-03-22] VITALS: Ht 188 cm; Wt 80.6 kg
[~2020-03-22 14:17] MED LIST changes: -LENA5CAP PO; -PANT40TA54 PO
[2020-03-22 15:13] LABS: APPEARANCE,URINE Cloudy (CLEAR); BILIRUBIN,URINE Negative (NEGATIVE); COLOR,URINE Dark Yellow (YELLOW); GLUCOSE, URINE (UA) Negative (NEGATIVE); KETONES,URINE Negative (NEGATIVE); LEUKOCYTE ESTERASE ,URINE Trace (NEGATIVE); NITRATE,URINE Negative (NEGATIVE); OCCULT BLOOD,URINE Large (NEGATIVE); PROTEIN,URINE POS 1+ mg/dL (NEGATIVE)
[2020-03-22 15:14] LABS: BASOPHILS % (AUTO) 0.3 % (0.0-5.0); EOSINOPHILS % (AUTO) 2.4 % (0.0-8.0); LYMPHOCYTES % (AUTO) 22.4 % (21.0-51.0); MEAN CORPUSCULAR HEMOGLOBIN 31.7 pg (27.0-33.0); MEAN CORPUSCULAR HGB CONC 33.3 g/dL (32.0-36.0); MEAN CORPUSCULAR VOLUME 95.2 fL (79-99); MONOCYTES % (AUTO) 19.6 % (3.0-13.0); NEUTROPHILS % (AUTO) 51.9 % (40.0-77.0); NUCLEATED RED BLOOD CELLS 15.5 % (0.0-0.19); PLATELET COUNT (AUTO) 73 K/uL (130-400); RED BLOOD CELL COUNT(AUTO) 1.86 MIL/uL (4.00-5.50); RED CELL DISTRIBUTION WIDTH 23.9 % (11.0-15.5); WHITE BLOOD COUNT (AUTO) 7.1 K/uL (4.8-10.8)
[2020-03-22 15:21] LABS: HEMATOCRIT 17.7 % (36-48); INR 1.22 (0.85-1.15); PARTIAL THROMBOPLASTIN TIME 41.1 SEC (26.3-35.5); PROTHROMBIN TIME 13.1 SEC (9.6-11.6)
[2020-03-22 15:26] LABS: ALBUMIN 2.4 g/dL (3.5-5.0); BILIRUBIN,TOTAL 4.2 mg/dL (0.2-1.0); CREATININE 3.6 mg/dL (0.5-1.5); POTASSIUM 4.7 mmol/L (3.5-5.1); TOTAL PROTEIN, SERUM 6.4 g/dL (6.0-8.3)
[2020-03-22 15:32] LABS: BACTERIA,URINE Moderate /HPF (None Seen); WBC,URINE 0-1 /HPF (0-1)
[2020-03-22 16:06] LABS: BAND NEUTROPHILS % (MANUAL) 1 % (0-2); LYMPHOCYTES % (MANUAL) 37 % (22-44); MAN.DIFF COMMENT-IMPRESSION MANUAL DIFFERENTIAL; MONOCYTES % (MANUAL) 11 % (2-9); SEGMENTED NEUTROPHILS % 51 % (40-70)
[2020-03-22 16:07] LABS: PLATELET MORPHOLOGY COMMENT DECREASED
[2020-03-22] MEDS ORDERED: SODIUM CHLORIDE 0.9% 1000ML 1,000 ML IV SCH (16:46)
[2020-03-22] MEDS ORDERED: MORPHINE SULFATE 2 MG/ML 1ML SYG ONE (16:47)
[2020-03-22] MEDS ORDERED: DiphenhydrAMINE HCL 50 MG/ML VIAL IV PRN (17:00)
[2020-03-22] MEDS ORDERED: ACETAMINOPHEN 325 MG TAB PO PRN (17:00)
[2020-03-22] MEDS ORDERED: NITROGLYCERIN 0.4 MG SL TAB SL PRN (17:00)
[2020-03-22] MEDS ORDERED: GUAIFENESIN-DM 200/20 MG 10 ML PO PRN (17:00)
[2020-03-22] MEDS ORDERED: HYDRALAZINE HCL 20 MG/ML VIAL IV PRN (17:00)
[2020-03-22] MEDS ORDERED: LACTULOSE 20 GM/30 ML UDCUP PO PRN (17:00)
[2020-03-22] MEDS ORDERED: HYDROMORPHONE 1 MG/1 ML AMP ONE (17:49)
[2020-03-22 19:26] LABS: AMYLASE 59 U/L (25-115); LIPASE 383 U/L (114-286)
[2020-03-22 19:30] LABS: BILIRUBIN,TOTAL 4.1 mg/dL (0.2-1.0)
[2020-03-22] MEDS ORDERED: MORPHINE SULFATE 4 MG/1ML SYG ONE (20:01)
[2020-03-22] MEDS ORDERED: ONDANSETRON HCL 4 MG/2 ML VIAL ONE (20:01)
[2020-03-22] MEDS ORDERED: FAMOTIDINE/PF 20 MG/2 ML VIAL IV ONE (20:02)
[2020-03-22] MEDS ORDERED: HEPARIN SODIUM 5000UNIT/ML 1ML VIAL ONE (20:02)
[2020-03-22] MEDS: HEPARIN SODIUM 5000UNIT/ML 1ML VIAL SQ SCH (21:00)
[2020-03-22] MEDS: ACETAMINOPHEN-CODEINE 300/30MG TAB PO PRN (23:14)
[2020-03-23] VITALS (7 sets, daily range): BP systolic 128–148; BP diastolic 53–70
[2020-03-23] MEDS: MORPHINE SULFATE 2 MG/ML 1ML SYG IVP PRN (00:42)
[2020-03-23 04:39] LABS: BASOPHILS % (AUTO) 0.4 % (0.0-5.0); EOSINOPHILS % (AUTO) 1.6 % (0.0-8.0); HEMATOCRIT 26.4 % (36-48); LYMPHOCYTES % (AUTO) 34.6 % (21.0-51.0); MEAN CORPUSCULAR HEMOGLOBIN 31.1 pg (27.0-33.0); MEAN CORPUSCULAR HGB CONC 33.7 g/dL (32.0-36.0); MEAN CORPUSCULAR VOLUME 92.3 fL (79-99); MONOCYTES % (AUTO) 15.4 % (3.0-13.0); NEUTROPHILS % (AUTO) 43.9 % (40.0-77.0); NUCLEATED RED BLOOD CELLS 14.8 % (0.0-0.19); PLATELET COUNT (AUTO) 62 K/uL (130-400); RED BLOOD CELL COUNT(AUTO) 2.86 MIL/uL (4.00-5.50); RED CELL DISTRIBUTION WIDTH 18.9 % (11.0-15.5)
[2020-03-23 04:57] LABS: ALBUMIN 2.3 g/dL (3.5-5.0); TOTAL PROTEIN, SERUM 6.3 g/dL (6.0-8.3)
--- NOTE | 2020-03-23 06:31 | NUR ---
Patient refusing to have the MRCP, stated does not want to have it done due to kidney function and does not want procedure done anyway. Had paged to let him know of the critical result, and no return call yet.
[2020-03-23] MEDS: HEPARIN SODIUM 5000UNIT/ML 1ML VIAL SQ SCH ×2 (09:00→20:38)
[2020-03-23] MEDS: FAMOTIDINE/PF 20 MG/2 ML VIAL IV SCH (10:03)
[2020-03-23] MEDS: MORPHINE SULFATE 4 MG/1ML SYG IV PRN (10:12)
--- NOTE | 2020-03-23 11:20 | NUR ---
RD NOTIFICATION Pt admitted with severe anemia, severe abdominal pain, elevated liver enzymes. Pt NPO, pending Gastroenterology consult, pending U/S, pending transfusion x2. Pt with altered renal function (BUN 84, Cr 4.0, GFR 12). Pt refusal of MRCP, as per EMR. Recommend advance diet to Clear Liquid, Ensure Clear with meals, when medically feasible. RD to follow up. Addendum: 03/23/20 at [address] Amended: Links added.
--- NOTE | 2020-03-23 16:05 | NUR ---
DCP CM met with pt discussed dc plans. Pt is independent prior to admission, lives at home w/spouse, liyah luevano. Denies any other equipments/services. Feels safe to go back home, still drives, spouse able to assist with transportation and needs as necessary. DC plan to home once stable. CM to cont to follow up. Addendum: 03/23/20 at 1606 by SHERIDAN RODRIGUEZ LVN CM Amended: Links added.
--- NOTE | 2020-03-23 20:38 | NUR ---
PATIENT GOING FOR A PROCEDURE IN THE MORNING.STILL HAVING BLOODY URINE AND NOSE BLEEDS. IN TO SEE PATIENT, STATED THE BLEEDING WAS NORMAL DUE TO THE TUBE THAT HAD BEEN PLACED IN 2 WEEKS AGO AND REMOVED THIS WEEK.
[2020-03-24] VITALS (24 sets, daily range): BP systolic 104–125; BP diastolic 40–70
[2020-03-24] MEDS: HEPARIN SODIUM 5000UNIT/ML 1ML VIAL SQ SCH ×2 (09:00→19:34)
[2020-03-24 09:11] LABS: HEPATITIS A ANTIBODY IGM Negative (Negative); HEPATITIS B CORE IGM Negative (Negative); HEPATITIS Bs ANTIGEN SCREEN P Negative (Negative)
[2020-03-24] MEDS: FAMOTIDINE/PF 20 MG/2 ML VIAL IV SCH (09:12)
[2020-03-24 10:02] LABS: HEMATOCRIT 24.3 % (36-48); MEAN CORPUSCULAR HEMOGLOBIN 30.2 pg (27.0-33.0); MEAN CORPUSCULAR HGB CONC 32.9 g/dL (32.0-36.0); MEAN CORPUSCULAR VOLUME 91.7 fL (79-99); PLATELET COUNT (AUTO) 62 K/uL (130-400); RED BLOOD CELL COUNT(AUTO) 2.65 MIL/uL (4.00-5.50); RED CELL DISTRIBUTION WIDTH 19.9 % (11.0-15.5)
[2020-03-24 10:15] LABS: ALBUMIN 2.3 g/dL (3.5-5.0); BILIRUBIN,TOTAL 7.2 mg/dL (0.2-1.0); CREATININE 5.7 mg/dL (0.5-1.5); POTASSIUM 5.1 mmol/L (3.5-5.1); TOTAL PROTEIN, SERUM 6.4 g/dL (6.0-8.3)
[2020-03-24 10:40] LABS: BAND NEUTROPHILS % (MANUAL) 2 % (0-2); BASOPHILS % (MANUAL) 1 % (0-2); LYMPHOCYTES % (MANUAL) 20 % (22-44); MONOCYTES % (MANUAL) 17 % (2-9); PLATELET MORPHOLOGY COMMENT DECREASED; REACTIVE LYMPHOCYTES 7 % (0-0); SEGMENTED NEUTROPHILS % 53 % (40-70)
[2020-03-24] MEDS ORDERED: MIDAZOLAM HCL 1 MG/ML 2ML VIAL ONE (11:44)
[2020-03-24] MEDS ORDERED: PROPOFOL 10 MG/ML 20ML VIAL IV ONE (13:49)
--- NOTE | 2020-03-24 17:01 | NUR ---
Notified Dr. Castro of patient's episode of confusion, continuing nosebleeds. Ni David CNA reported patient had risen from bed and was tangled in IV lines. Patient seemed confused and wasn't making sense. Patient assisted back to bed and IV lines were organized in a safe manner. Bed low, locked, call [facility] within reach. Per Dr. Sparks, spouse stated over telephone that he is unable to care for her and requested she go to a skilled nursing for medical care. No new orders received.
[2020-03-25 03:38] VITALS: BP 122/55
[2020-03-25 08:04] VITALS: BP 118/56
[2020-03-25] MEDS: HEPARIN SODIUM 5000UNIT/ML 1ML VIAL SQ SCH ×2 (09:00→21:00)
[2020-03-25] MEDS: PANTOPRAZOLE SODIUM 40 MG TABLET.DR PO SCH (09:48)
[2020-03-25 12:00] VITALS: BP 109/56
[2020-03-25 16:45] VITALS: BP 121/55
[2020-03-25 19:44] VITALS: BP 119/50
--- NOTE | 2020-03-25 20:11 | NUR ---
SPOKE WITH DR. 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 PT HAS NO BILIARY OBSTRUCTION. HE BELIEVES PT DOES NOT HAVE HEMOCHROMATOSIS SINCE PATIENT DOES NOT HAVE IRON OVERLOAD. HE RECOMMENDS ONCOLOGY TO SEE PATIENT FOR A POSSIBLE LIVER BIOPSY.
[2020-03-25 23:16] VITALS: BP 119/55
[2020-03-26 03:18] VITALS: BP 136/73
[2020-03-26 04:01] LABS: BASOPHILS % (AUTO) 0.3 % (0.0-5.0); EOSINOPHILS % (AUTO) 1.2 % (0.0-8.0); LYMPHOCYTES % (AUTO) 20.3 % (21.0-51.0); MEAN CORPUSCULAR HEMOGLOBIN 30.9 pg (27.0-33.0); MEAN CORPUSCULAR HGB CONC 33.8 g/dL (32.0-36.0); MEAN CORPUSCULAR VOLUME 91.5 fL (79-99); MONOCYTES % (AUTO) 18.4 % (3.0-13.0); NEUTROPHILS % (AUTO) 54.4 % (40.0-77.0); NUCLEATED RED BLOOD CELLS 23.5 % (0.0-0.19); PLATELET COUNT (AUTO) 54 K/uL (130-400); RED BLOOD CELL COUNT(AUTO) 2.23 MIL/uL (4.00-5.50); RED CELL DISTRIBUTION WIDTH 21.3 % (11.0-15.5); WHITE BLOOD COUNT (AUTO) 9.9 K/uL (4.8-10.8)
[2020-03-26 04:12] LABS: HEMATOCRIT 20.4 % (36-48)
[2020-03-26 04:13] LABS: CREATININE 6.8 mg/dL (0.5-1.5); PHOSPHORUS 5.7 mg/dL (2.5-4.9); POTASSIUM 5.4 mmol/L (3.5-5.1)
--- NOTE | 2020-03-26 04:18 | NUR ---
PAGED BUSINESS QUALITY ASSURANCE ANALYST HGB/HCT RETURNED CRITICAL AT 6.9/20.4. BUN 124. PENDING CALL BACK
--- NOTE | 2020-03-26 05:17 | NUR ---
CRITICAL RECHECK H/H 6.6/19.7. BLOOD TRANSFUSION STANDING ORDER INITIATED.
[2020-03-26 05:18] LABS: HEMATOCRIT 19.7 % (36-48)
--- NOTE | 2020-03-26 07:00 | NUR ---
REPORT GIVEN TO YENY Frances RN. INFORMED DAY NURSE THAT PT IS PENDING BLOOD TRANSFUSION. BLOOD BANK IS STILL PROCESSING ORDER. PT AND FAMILY AWARE OF TRANSFUSION. CONSENT IN CHART FOR BLOOD TRANSFUSION FROM 03/22/2020.
[2020-03-26 07:47] VITALS: BP 107/39
[2020-03-26] MEDS: HEPARIN SODIUM 5000UNIT/ML 1ML VIAL SQ SCH (07:49)
[2020-03-26] MEDS: PANTOPRAZOLE SODIUM 40 MG TABLET.DR PO SCH (08:04)
--- NOTE | 2020-03-26 09:20 | NUR ---
Retrieved 1 unit PRBC from blood bank/lab. Notified patient that unit was ready for transfusion. Patient stated she did not want to receive transfusion and stated she wanted to leave. When asked if she wanted to leave against medical advice, patient stated, "Are they kicking me out?" Responded that we are not kicking her out, reminded that physician spoke at length with her and her yesterday regarding current condition and recommended treatments has been refused. Patient and reminded that she is the patient and we cannot force any treatments on her and that she has a right to refuse treatment that is medically recommended. Patient and spouse nodded heads up and down in agreement. Unit of PRBC returned to blood bank at 9:25. Notified Dr. Castro of refusal of blood transfusion with hemoglobin 6.6 and hematocrit 19.7 and patient's desire to leave. Per Dr. Castro, if patient leaves AMA before he is able to come speak with her, that is fine.
--- NOTE | 2020-03-26 10:35 | NUR ---
Dr. Castro spoke with patient and family regarding current condition and risks involved without tranfusion of blood with critical hgb/hct level. Patient consented to blood transfusion. After transfusion will monitor and plan for possible discharge to home with follow up to oncologist. Will notify blood bank.
[2020-03-26 10:37] LABS: ALBUMIN 2.1 g/dL (3.5-5.0); TOTAL PROTEIN, SERUM 6.1 g/dL (6.0-8.3)
[2020-03-26] MEDS ORDERED: SODIUM CHLORIDE 0.9% 250 ML IV ONE (10:52)
--- NOTE | 2020-03-26 11:15 | NUR ---
Blood unit and patient identification verified with coreroom foundry laborer Marquita and with Jenny Freedman RN, charge nurse. Patient resting in bed, daughter at bedside. Transfusion initiated to PIV RAC. Patient denies pain, uncomfortableness, sob. No distress noted, patient laying comfortably in bed. Bed low locked. Call [facility] within reach.
[2020-03-26 11:23] LABS: % IRON SATURATION 105.4 % (22-44)
[2020-03-26 12:03] VITALS: BP 97/49
--- NOTE | 2020-03-26 12:30 | NUR ---
DCP UPDATE Spoke w Dr. Lilly this afternoon regarding order for palliative care/hospice. Per Dr. Lilly pt has accepted continued medical treatment. He mentions he will cancel palliative care/hospice order. Primary nurse present during conversation. DCP remains for home, pt will f/u w pcp upon dc.
[2020-03-26 15:48] LABS: HEMATOCRIT 22.4 % (36-48)
[2020-03-26 17:08] VITALS: BP 139/67
[2020-03-26 19:37] VITALS: BP_SYST 112; BP_SYST 151; BP_DIAS 57; BP_DIAS 73
[2020-03-26] MEDS: MORPHINE SULFATE 4 MG/1ML SYG IV PRN (21:01)
[2020-03-26 23:36] VITALS: BP 125/65
[2020-03-27] VITALS (10 sets, daily range): BP systolic 101–143; BP diastolic 42–67
[2020-03-27] MEDS: ACETAMINOPHEN-CODEINE 300/30MG TAB PO PRN (02:54)
[2020-03-27] MEDS: DIPHENHYDRAMINE HCL 25 MG CAPSULE PO PRN (02:54)
[2020-03-27 04:40] LABS: ALBUMIN 2.1 g/dL (3.5-5.0); BILIRUBIN,TOTAL 11.5 mg/dL (0.2-1.0); CREATININE 7.1 mg/dL (0.5-1.5); POTASSIUM 5.8 mmol/L (3.5-5.1); TOTAL PROTEIN, SERUM 6.2 g/dL (6.0-8.3)
[2020-03-27] MEDS ORDERED: CALCIUM GLUCONATE 1 GM in SODIUM CHLORIDE 0.9% 50 ML IV SCH (07:15)
[2020-03-27] MEDS ORDERED: CALCIUM GLUCONATE 1 GM/10 ML VIAL IV SCH (07:15)
[2020-03-27] MEDS: SODIUM POLYSTYRENE SULFONATE 15 GM/60 ML ML PO SCH (09:58)
[2020-03-27] MEDS: PANTOPRAZOLE SODIUM 40 MG TABLET.DR PO SCH (10:00)
[2020-03-27 10:38] LABS: BASOPHILS % (AUTO) 0.6 % (0.0-5.0); EOSINOPHILS % (AUTO) 1.2 % (0.0-8.0); HEMATOCRIT 22.1 % (36-48); LYMPHOCYTES % (AUTO) 19.1 % (21.0-51.0); MEAN CORPUSCULAR HGB CONC 34.4 g/dL (32.0-36.0); MEAN CORPUSCULAR VOLUME 90.2 fL (79-99); MONOCYTES % (AUTO) 20.3 % (3.0-13.0); NEUTROPHILS % (AUTO) 49.6 % (40.0-77.0); NUCLEATED RED BLOOD CELLS 25.6 % (0.0-0.19); PLATELET COUNT (AUTO) 50 K/uL (130-400); RED BLOOD CELL COUNT(AUTO) 2.45 MIL/uL (4.00-5.50); RED CELL DISTRIBUTION WIDTH 21.5 % (11.0-15.5); WHITE BLOOD COUNT (AUTO) 12.4 K/uL (4.8-10.8)
[2020-03-27 10:54] LABS: INR 1.37 (0.85-1.15); PARTIAL THROMBOPLASTIN TIME 46.1 SEC (26.3-35.5); PROTHROMBIN TIME 14.6 SEC (9.6-11.6)
[2020-03-27 11:22] LABS: BAND NEUTROPHILS % (MANUAL) 1 % (0-2); EOSINOPHILS % (MANUAL) 1 % (1-6); LYMPHOCYTES % (MANUAL) 18 % (22-44); MAN.DIFF COMMENT-IMPRESSION MANUAL DIFFERENTIAL; METAMYELOCYTES % 4 % (0-0); MONOCYTES % (MANUAL) 13 % (2-9); SEGMENTED NEUTROPHILS % 63 % (40-70)
[2020-03-27 11:24] LABS: PLATELET MORPHOLOGY COMMENT DECREASED
[2020-03-27] MEDS ORDERED: LIDOCAINE HCL 1% MDV 50ML VIAL ONE (14:14)
[2020-03-27 14:30] LABS: HEMATOCRIT 23.2 % (36-48)
[2020-03-27 14:49] LABS: HEMOGLOBIN A1C 5.2 % (4.0-6.0)
[2020-03-27 14:50] LABS: ALBUMIN 2.2 g/dL (3.5-5.0); CREATININE 7.4 mg/dL (0.5-1.5)
--- NOTE | 2020-03-27 15:30 | NUR ---
CM NOTE/DCP DIALYSIS MEET WITH PATIENT IN ROOM, PATIENT CONFUSED. SPOUSE AND 2 DAUGHTERS AT BEDSIDE. PER FAMILY, PATIENT HAD ALREADY HAD DIALYSIS ABOUT 1 YEAR AGO AND WOULD LIKE TO RETURN TO SAME COMPANY. [facility] FILLED FOR US RENAL IN [place]. PER SPOUSE, IF POSSIBLE, WOULD LIKE SCHEDULE TO BE LIKE PRIOR OF TTS AND IN AM. CM TO FOLLOW UP ON REFERRAL.
[2020-03-27 15:58] LABS: % IRON SATURATION 110.7 % (22-44)
--- NOTE | 2020-03-27 16:06 | NUR ---
RD FOLLOW UP Pt pending Dialysis at time of visit. Pt continues with Full Liquid Diet status x4 days. Poor PO intake. Pt with increased confusion as per EMR. Pt with Nursing team at time of visit. Pending Dialysis as per RN. Recommend advance diet to Renal Dialysis as medically feasible. Recommend Nepro QD. RD to follow up with nutrition education. Addendum: 03/27/20 at [address] Amended: Links added.
[2020-03-27] MEDS ORDERED: 0.9% SODIUM CHLORIDE 1000 ML IV BAG IV PRN (21:45)
[2020-03-27] MEDS ORDERED: ACETAMINOPHEN 325 MG TAB PO PRN (21:45)
[2020-03-27] MEDS ORDERED: SODIUM CHLORIDE 0.9% 1000ML 1,000 ML IV PRN (21:45)
[2020-03-27] MEDS ORDERED: HEPARIN SODIUM 5000UNIT/ML 1ML VIAL IJ PRN (21:45)
[2020-03-28 02:09] VITALS: BP 108/63
[2020-03-28 04:00] VITALS: BP 112/63
[2020-03-28 05:47] LABS: ALBUMIN 1.9 g/dL (3.5-5.0); BILIRUBIN,TOTAL 11.9 mg/dL (0.2-1.0); CREATININE 5.3 mg/dL (0.5-1.5)
[2020-03-28 06:11] LABS: BILIRUBIN,DIRECT 9.5 mg/dL (0.0-0.3)
[2020-03-28] MEDS: SODIUM POLYSTYRENE SULFONATE 15 GM/60 ML ML PO SCH (07:15)
[2020-03-28 07:30] VITALS: BP 113/59
[2020-03-28] MEDS: PANTOPRAZOLE SODIUM 40 MG TABLET.DR PO SCH (10:44)
--- NOTE | 2020-03-28 11:32 | NUR ---
DISCUSSED DCP WITH MD OUTPATIENT HD? ADVISED MD THAT CHAIR TIME PT IS REQUESTING WILL NOT BE AVAILABLE,= ADVISED NOT TO TALK TO HER YET, NOT SURE IF SHE WILL NEED AND/OR AGREE TO LT OUTPATIENT HD. SPOKE TO RUKHSANA AT [facility] [place] THEY STATES NO OPEN CHAIRS, ONE MAY OOPN WITHIN THE NEXT TWO WEEKS ON AT TTS, BUT NOT SURE. WILL SUBMIT THROUGH [facility] ADMISSION WHEN CM HAS ORDERS TO DO SO
[2020-03-28 12:00] VITALS: BP 123/65
[2020-03-28] MEDS: ACETAMINOPHEN 325 MG TAB PO PRN ×2 (13:35→15:38)
[2020-03-28] MEDS: DIPHENHYDRAMINE HCL 25 MG CAPSULE PO PRN (13:35)
[2020-03-28 16:00] VITALS: BP 141/72
[2020-03-28] MEDS ORDERED: COMPOUND IV MISC 1 EACH IVSOLN MISC PRN (17:45)
[2020-03-28 20:04] VITALS: BP 109/51
[2020-03-29 00:04] VITALS: BP 117/74
[2020-03-29] MEDS: ONDANSETRON HCL 4 MG/2 ML VIAL IV PRN (03:21)
[2020-03-29] MEDS: SODIUM POLYSTYRENE SULFONATE 15 GM/60 ML ML PO SCH (03:52)
[2020-03-29 04:05] VITALS: BP 103/49
[2020-03-29 05:00] LABS: BASOPHILS % (AUTO) 0.4 % (0.0-5.0); LYMPHOCYTES % (AUTO) 22.6 % (21.0-51.0); MEAN CORPUSCULAR HEMOGLOBIN 30.4 pg (27.0-33.0); MEAN CORPUSCULAR HGB CONC 34.4 g/dL (32.0-36.0); MEAN CORPUSCULAR VOLUME 88.5 fL (79-99); MONOCYTES % (AUTO) 13.1 % (3.0-13.0); NEUTROPHILS % (AUTO) 52.2 % (40.0-77.0); NUCLEATED RED BLOOD CELLS 46.3 % (0.0-0.19); PLATELET COUNT (AUTO) 42 K/uL (130-400); RED BLOOD CELL COUNT(AUTO) 2.17 MIL/uL (4.00-5.50); RED CELL DISTRIBUTION WIDTH 23.3 % (11.0-15.5); WHITE BLOOD COUNT (AUTO) 13.4 K/uL (4.8-10.8)
[2020-03-29 05:21] LABS: ALBUMIN 1.9 g/dL (3.5-5.0); BILIRUBIN,TOTAL 11.4 mg/dL (0.2-1.0); CREATININE 4.2 mg/dL (0.5-1.5)
[2020-03-29 05:27] LABS: BILIRUBIN,DIRECT 8.8 mg/dL (0.0-0.3)
[2020-03-29 05:39] LABS: HEMATOCRIT 19.2 % (36-48)
--- NOTE | 2020-03-29 06:46 | NUR ---
PER DR. AIRAM CAMPUZANO
[2020-03-29 08:00] VITALS: BP 135/75
[2020-03-29 08:12] LABS: HEPATITIS Bs ANTIGEN SCREEN P Negative (Negative)
[2020-03-29] MEDS: MORPHINE SULFATE 2 MG/ML 1ML SYG IVP PRN (08:14)
[2020-03-29] MEDS: PANTOPRAZOLE SODIUM 40 MG TABLET.DR PO SCH (08:14)
[2020-03-29] MEDS ORDERED: DEXAMETHASONE 10MG/ML 1ML VIAL 40 MG in SODIUM CHLORIDE 0.9% 50 ML IV ONE (09:00)
--- NOTE | 2020-03-29 09:00 | NUR ---
NOTED ORDER TO DIALYZE PT AGAIN TODAY, TRANSFUSE 2 UNITS PRBCS WITH HD. NOTIFIED HD NURSE SHEBA OF ORDERS.
[2020-03-29] MEDS: MAG HYDROX/AL HYDROX/SIMETH ES 30 ML SUSP UDCUP PO PRN ×2 (10:10→20:42)
[2020-03-29 11:20] VITALS: BP 102/56
[2020-03-29] MEDS: MORPHINE SULFATE 4 MG/1ML SYG IV PRN (12:25)
[2020-03-29] MEDS ORDERED: SODIUM CHLORIDE 0.9% 250 ML IV ONE (13:04)
[2020-03-29] MEDS: ACETAMINOPHEN-CODEINE 300/30MG TAB PO PRN (15:23)
[2020-03-29 16:00] VITALS: BP 112/59
[2020-03-29 16:05] LABS: HEMATOCRIT 29.4 % (36-48)
[2020-03-29 20:00] VITALS: BP 118/68
[2020-03-30] VITALS (7 sets, daily range): BP systolic 113–133; BP diastolic 61–73
[2020-03-30 05:58] LABS: ALBUMIN 1.9 g/dL (3.5-5.0); BILIRUBIN,TOTAL 10.5 mg/dL (0.2-1.0); CREATININE 3.4 mg/dL (0.5-1.5); POTASSIUM 4.4 mmol/L (3.5-5.1); TOTAL PROTEIN, SERUM 6.2 g/dL (6.0-8.3)
[2020-03-30 06:36] LABS: BILIRUBIN,DIRECT 8.3 mg/dL (0.0-0.3)
[2020-03-30] MEDS: SODIUM POLYSTYRENE SULFONATE 15 GM/60 ML ML PO SCH (07:15)
[2020-03-30] MEDS: PANTOPRAZOLE SODIUM 40 MG TABLET.DR PO SCH (08:02)
[2020-03-30 10:35] LABS: INR 1.28 (0.85-1.15); PROTHROMBIN TIME 13.7 SEC (9.6-11.6)
--- NOTE | 2020-03-30 10:51 | NUR ---
1040 BPCI Letter given to patient.
--- NOTE | 2020-03-30 11:13 | NUR ---
Received call from Dahlia at residential living assistant stating order for infectious disease consult for UTI can contraindicate placement of Permacath if active infection in place. Dr. Santamaria to speak with Dr. Hale for recommendation and will notify if can proceed with Permacath placement.
--- NOTE | 2020-03-30 12:35 | NUR ---
FOLLOWED UP ON ANITRA TO [facility] [place]; WILL BE SENDING REFERRAL to [facility] recd
[2020-03-30] MEDS ORDERED: VANCOMYCIN PROTOCOL PER PHARMACY IV SCH (13:30)
[2020-03-30] MEDS ORDERED: COMPOUND IV REFRIGERATED 1 EACH IVSOLN MISC PRN (14:30)
[2020-03-30] MEDS ORDERED: VANCOMYCIN 1.5 GM in SODIUM CHLORIDE 0.9% 250 ML IV ONE (15:00)
[2020-03-30] MEDS: ACETAMINOPHEN-CODEINE 300/30MG TAB PO PRN (23:21)
[2020-03-31] VITALS (14 sets, daily range): BP systolic 97–140; BP diastolic 32–77
[2020-03-31] MEDS: ONDANSETRON HCL 4 MG/2 ML VIAL IV PRN (00:14)
[2020-03-31] MEDS: MAG HYDROX/AL HYDROX/SIMETH ES 30 ML SUSP UDCUP PO PRN (03:12)
[2020-03-31 04:56] LABS: BASOPHILS % (AUTO) 0.5 % (0.0-5.0); EOSINOPHILS % (AUTO) 0.3 % (0.0-8.0); HEMATOCRIT 29.3 % (36-48); LYMPHOCYTES % (AUTO) 14.9 % (21.0-51.0); MEAN CORPUSCULAR HEMOGLOBIN 30.2 pg (27.0-33.0); MEAN CORPUSCULAR HGB CONC 33.4 g/dL (32.0-36.0); MEAN CORPUSCULAR VOLUME 90.4 fL (79-99); MONOCYTES % (AUTO) 11.9 % (3.0-13.0); NEUTROPHILS % (AUTO) 63.7 % (40.0-77.0); NUCLEATED RED BLOOD CELLS 32.8 % (0.0-0.19); PLATELET COUNT (AUTO) 48 K/uL (130-400); RED BLOOD CELL COUNT(AUTO) 3.24 MIL/uL (4.00-5.50); RED CELL DISTRIBUTION WIDTH 22.1 % (11.0-15.5); WHITE BLOOD COUNT (AUTO) 15.4 K/uL (4.8-10.8)
[2020-03-31 05:08] LABS: CREATININE 4.4 mg/dL (0.5-1.5)
[2020-03-31] MEDS: PANTOPRAZOLE SODIUM 40 MG TABLET.DR PO SCH (10:33)
[2020-03-31] MEDS: ACETAMINOPHEN-CODEINE 300/30MG TAB PO PRN ×2 (13:23→18:15)
[2020-03-31] MEDS ORDERED: VANCOMYCIN 1GM+NS 250ML IV SCH (14:30)
--- NOTE | 2020-03-31 15:44 | NUR ---
RD FOLLOW UP Pt receiving care at time of screen. Pt remains on Full Liquid diet order since admit. Pt pending Cath removal/placement as per EMR. Pt s/p hemodialysis. No report of GI distress. PO intake at 25-50%. Dialysis Nutrition Education placed in Pt chart. Recommend advance diet as tolerated to Regular-textured diet, Renal Dialysis Diet modification Recommend Nepro QD Nutrition Education placed in Pt chart. RD to continue to monitor. Addendum: 03/31/20 at [address] Amended: Links added.
--- NOTE | 2020-03-31 15:48 | NUR ---
SUMIT NUTRITION EDUCATION SUMIT provided Renal Dialysis Nutrition Education. Pt receiving care at time of visit. Education handout placed in Pt chart. RD to follow up. Addendum: 03/31/20 at [address] Amended: Links added.
--- NOTE | 2020-03-31 16:35 | NUR ---
U/S GD PARACENTESIS PROCEDURE PERFORMED BY DR Stephania BENNETT. PUNCTURE SITE LUQ AND PATIENT TOLERATED PROCEDURE WELL. TOTAL REMOVED 3.8 LITERS OF DARK MARYELLEN FLUID. END OF PROCEDURE AT 1625. CATHETER REMOVED AND DRESSING APPLIED. NO BLEEDING NOTED. REPORT GIVEN TO Rhoda MITCHELL RN AND PATIENT TRANSPORTED TO [facility] VIA BED AT 1635. AAO X3 WITH NO C/O PAIN. SPECIMEN SENT TO LAB.
--- NOTE | 2020-03-31 18:06 | NUR ---
REFERRAL TO [facility] IN [place], [address]M SENT TO INTAKE [address] FENTON STATES WILL REPLACE THE JULIENNE Cat PERMACATH ON FRIDAY , DO HD, AND DISCHARGE IF A CHAIR AVAILABLE, JED TO FOLLOW UP Addendum: 03/31/20 at 1809 by ILIR LE RN CM Amended: Links added.
[2020-03-31] MEDS ORDERED: TRAMADOL HCL 50 MG TABLET PO SCH (18:30)
[2020-03-31 19:04] LABS: APPEARANCE BODY FLUID SLIGHTLY CLOUDY (CLEAR); COLOR,BODY FLUID YELLOW (LT YELLOW); SPECIMENTYPE,BODY FLUID ASCITES; TOTAL VOLUME,BODY FLUID 3000 mL
[2020-03-31 19:05] LABS: BODY FLUID RBC 1126 /cu. mm.; BODY FLUID WBC 353 /cu. mm.
[2020-03-31 19:09] LABS: ALBUMIN,BODY FLUID 0.8 g/dL
--- NOTE | 2020-03-31 19:49 | NUR ---
ORDER BY DR Kira FENTON TO REMOVE JULIENNE TODAY, PLAN FOR PERMACATH PLACEMENT ON FRIDAY. Mohit CRUZ RN AND Roddy DE LEON RN AT BEDSIDE TO PERFORM PROCEDURE. PT PLACED IN SUPINE POSITION AFTER EXPLAINING REASON. OLD DRESSING REMOVED, SUTURES REMOVED AND SITE CLEANSED WITH CHLORAPREP. INSTRUCTED PT TO TAKE DEEP BREATH AND HOLD, THEN CATHETER REMOVED BY Mohit CRUZ RN, TIP INTACT. PT INSTRUCTED TO RESUME NORMAL RESPIRATIONS. PRESSURE HELD WITH STERILE 4X4 AND GLOVED HANDS X 20 MINUTES BY Roddy DE LEON RN DUE TO DECREASED PLATELETS. NO BLEEDING NOTED, NO DISCOLORATION, NO SWELLING, NO HEMATOMA TO SITE. DRESSED WITH BIO-OCCLUSIVE DRESSING. PT TOLERATED WELL. CALL LIGHT AND TABLE/BELONGINGS IN EASY REACH. DAUGHTER AT BEDSIDE.
[2020-03-31 20:05] LABS: BF EOSINOPHIL 1 %; BF LYMPHOCYTE 63 %; BF MESOTHELIAL 24 %; BF MONOCYTE 2 %
[2020-03-31] MEDS: TRAMADOL HCL 50 MG TABLET PO PRN (20:22)
--- NOTE | 2020-03-31 20:25 | NUR ---
MEDS SHIFT ASSESSMENT DONE PLEASE REFER TO CHART. PT COMPLAINTS OF ABDOMINAL PAINS. DUE MEDS ADMINISTERED, TRAMADOL PO GIVEN FOR PAIN. PT TOLERATED MEDS WELL. KEPT RESTED AND COMFORTABLE IN BED. WILL RE-ASSESS PT. Addendum: 04/01/20 at 0022 by HYUN SMITH RN RN Amended: Links added.
--- NOTE | 2020-03-31 22:00 | NUR ---
PIV TRIED TO RE-INSERT PIV BUT FAILED. ASKED DESIREE SUTTON TO TRY RE-INSERTION AND WAS ABLE TO INSERT G20 TO NADINE. IV VANCO INFUSION CONTINUED.
[2020-04-01] MEDS: ACETAMINOPHEN-CODEINE 300/30MG TAB PO PRN (01:47)
--- NOTE | 2020-04-01 01:47 | NUR ---
PAIN PT CALLS FOR PAIN MEDICATION FOR ABDOMINAL PAINS. SEEN SITTING DOWN IN BED. MEDICATED WITH TYLENOL #3 1 TAB PO. KEPT RESTED AND COMFORTABLE. WILL RE-ASSESS PT.
[2020-04-01 03:39] VITALS: BP 119/76
--- NOTE | 2020-04-01 05:18 | NUR ---
ROUNDS PT RESTING WELL. NO DISTRESS NOTED. KEPT COMFORTABLE. FOR MORE CARE.
[2020-04-01 08:00] VITALS: BP 130/76
[2020-04-01] MEDS: PANTOPRAZOLE SODIUM 40 MG TABLET.DR PO SCH (09:23)
[2020-04-01 11:00] VITALS: BP 91/45
[2020-04-01] MEDS: LACTULOSE 20 GM/30 ML UDCUP PO SCH ×3 (11:28→18:53)
[2020-04-01 16:00] VITALS: BP 92/47
[2020-04-01 20:00] VITALS: BP 133/76
[2020-04-02] VITALS (7 sets, daily range): BP systolic 90–123; BP diastolic 42–83
[2020-04-02] MEDS: LACTULOSE 20 GM/30 ML UDCUP PO SCH ×2 (00:27→03:15)
[2020-04-02] MEDS ORDERED: BISACODYL 10 MG SUPP.RECT RC ONE ×2 (00:52→01:00)
[2020-04-02] MEDS: ACETAMINOPHEN-CODEINE 300/30MG TAB PO PRN ×2 (05:10→10:25)
[2020-04-02 06:04] LABS: BASOPHILS % (AUTO) 0.3 % (0.0-5.0); EOSINOPHILS % (AUTO) 0.6 % (0.0-8.0); HEMATOCRIT 23.6 % (36-48); LYMPHOCYTES % (AUTO) 16.5 % (21.0-51.0); MEAN CORPUSCULAR HEMOGLOBIN 29.9 pg (27.0-33.0); MEAN CORPUSCULAR HGB CONC 33.1 g/dL (32.0-36.0); MEAN CORPUSCULAR VOLUME 90.4 fL (79-99); MONOCYTES % (AUTO) 12.7 % (3.0-13.0); NEUTROPHILS % (AUTO) 64.3 % (40.0-77.0); NUCLEATED RED BLOOD CELLS 22.9 % (0.0-0.19); PLATELET COUNT (AUTO) 44 K/uL (130-400); RED BLOOD CELL COUNT(AUTO) 2.61 MIL/uL (4.00-5.50); RED CELL DISTRIBUTION WIDTH 23.1 % (11.0-15.5); WHITE BLOOD COUNT (AUTO) 11.6 K/uL (4.8-10.8)
[2020-04-02 06:17] LABS: ALBUMIN 1.8 g/dL (3.5-5.0); BILIRUBIN,DIRECT 5.2 mg/dL (0.0-0.3); BILIRUBIN,TOTAL 6.6 mg/dL (0.2-1.0); CREATININE 5.1 mg/dL (0.5-1.5); POTASSIUM 4.4 mmol/L (3.5-5.1); TOTAL PROTEIN, SERUM 5.5 g/dL (6.0-8.3)
[2020-04-02] MEDS: POLYETHYLENE GLYCOL 3350 17 GM POWD.PACK PO SCH (09:00)
[2020-04-02] MEDS: TRAMADOL HCL 50 MG TABLET PO PRN ×2 (09:21→15:25)
[2020-04-02] MEDS: PANTOPRAZOLE SODIUM 40 MG TABLET.DR PO SCH (09:21)
[2020-04-02] MEDS: ONDANSETRON HCL 4 MG/2 ML VIAL IV PRN (18:22)
[2020-04-03] VITALS (14 sets, daily range): BP systolic 96–131; BP diastolic 19–78
[2020-04-03 05:53] LABS: HEMATOCRIT 21.8 % (36-48); MEAN CORPUSCULAR HEMOGLOBIN 30.8 pg (27.0-33.0); MEAN CORPUSCULAR HGB CONC 33.9 g/dL (32.0-36.0); MEAN CORPUSCULAR VOLUME 90.8 fL (79-99); PLATELET COUNT (AUTO) 42 K/uL (130-400); RED CELL DISTRIBUTION WIDTH 23.9 % (11.0-15.5); WHITE BLOOD COUNT (AUTO) 13.8 K/uL (4.8-10.8)
[2020-04-03 06:04] LABS: INR 1.31 (0.85-1.15); PARTIAL THROMBOPLASTIN TIME 39.4 SEC (26.3-35.5)
[2020-04-03 06:31] LABS: BAND NEUTROPHILS % (MANUAL) 2 % (0-2); EOSINOPHILS % (MANUAL) 3 % (1-6); LYMPHOCYTES % (MANUAL) 16 % (22-44); MAN.DIFF COMMENT-IMPRESSION MANUAL DIFFERENTIAL; MONOCYTES % (MANUAL) 13 % (2-9); REACTIVE LYMPHOCYTES 2 % (0-0); SEGMENTED NEUTROPHILS % 64 % (40-70)
[2020-04-03 06:32] LABS: PLATELET MORPHOLOGY COMMENT MARKED DECREASE
[2020-04-03 06:56] LABS: CREATININE 6.3 mg/dL (0.5-1.5); POTASSIUM 5.1 mmol/L (3.5-5.1)
[2020-04-03 08:56] LABS: ALBUMIN 1.8 g/dL (3.5-5.0); BILIRUBIN,TOTAL 7.2 mg/dL (0.2-1.0); TOTAL PROTEIN, SERUM 5.5 g/dL (6.0-8.3)
--- NOTE | 2020-04-03 09:20 | NUR ---
Notified Dr. Traore of treatment plan for Permacath with Drilling Engineer, and order for paracentesis. Per Dr. Traore, hold paracentesis for another day. Patient to be dialyzed today after permacath treatment and will receive 1 PRBC with dialysis. Notified Dr. Castro of recommendations. Called Radiology to notify paracentesis to be held until tomorrow. clinical laboratory medical director confirmed patient is scheduled for today for permacath placement.
[2020-04-03] MEDS ORDERED: LIDOCAINE HCL 1% MDV 50ML VIAL ONE (10:23)
[2020-04-03] MEDS ORDERED: FENTANYL CITRATE PF 50 MCG/1 ML 2ML VIAL ONE (10:36)
--- NOTE | 2020-04-03 10:57 | NUR ---
Permacath Placement Received report from Dahlia in Visualization Developer, Rt sided permacath placed, ready for use. 50 mcg Fentanyl administered during procedure. Vitals reported sinus rhythm 82, BP 118/65, 100% on room air.
[2020-04-03] MEDS: PANTOPRAZOLE SODIUM 40 MG TABLET.DR PO SCH (12:31)
[2020-04-03] MEDS: POLYETHYLENE GLYCOL 3350 17 GM POWD.PACK PO SCH (12:31)
--- NOTE | 2020-04-03 15:11 | NUR ---
RD FOLLOW UP Pt continues with Full Liquid Diet Order since admit secondary to elevated Bilirubin, as per RN. Pt with significant weight loss. Pending paracentesis. s/p Permacath placement. Pending hemodialysis. BUN 101, Cr 6.3, GFR 7. Pt with Multiple myeloma, Cirrhosis, ESRD, as per EMR. Recommend advance diet as tolerated to Renal Dialysis, GI Soft. Recommend Nepro TID with meals. RD to continue to monitor. Please notify RD as additional nutrition concerns arise. Thank you. Addendum: 04/03/20 at [address] Amended: Links added.
[2020-04-03] MEDS ORDERED: SODIUM CHLORIDE 0.9% 250 ML IV ONE (15:15)
[2020-04-03] MEDS ORDERED: COMPOUND IV REFRIGERATED 1 EACH IVSOLN MISC PRN (16:00)
[2020-04-03] MEDS ORDERED: VANCOMYCIN 1.25 GM in SODIUM CHLORIDE 0.9% 250 ML IV SCH (16:00)
[2020-04-03] MEDS: MAG HYDROX/AL HYDROX/SIMETH ES 30 ML SUSP UDCUP PO PRN ×2 (17:20→20:07)
[2020-04-03] MEDS: ALPRAZOLAM 0.5 MG TABLET PO PRN (20:07)
[2020-04-03] MEDS: ACETAMINOPHEN-CODEINE 300/30MG TAB PO PRN (21:04)
[2020-04-04] VITALS (19 sets, daily range): BP systolic 62–156; BP diastolic 27–117
[2020-04-04] MEDS: TRAMADOL HCL 50 MG TABLET PO PRN ×2 (02:38→10:12)
[2020-04-04] MEDS: ACETAMINOPHEN-CODEINE 300/30MG TAB PO PRN ×2 (04:49→13:25)
[2020-04-04] MEDS: ALPRAZOLAM 0.5 MG TABLET PO PRN (05:07)
[2020-04-04 05:55] LABS: BASOPHILS % (AUTO) 0.2 % (0.0-5.0); EOSINOPHILS % (AUTO) 0.8 % (0.0-8.0); HEMATOCRIT 24.1 % (36-48); LYMPHOCYTES % (AUTO) 16.7 % (21.0-51.0); MEAN CORPUSCULAR HEMOGLOBIN 29.5 pg (27.0-33.0); MEAN CORPUSCULAR HGB CONC 33.6 g/dL (32.0-36.0); MEAN CORPUSCULAR VOLUME 87.6 fL (79-99); MONOCYTES % (AUTO) 16.6 % (3.0-13.0); NEUTROPHILS % (AUTO) 61.6 % (40.0-77.0); NUCLEATED RED BLOOD CELLS 18.3 % (0.0-0.19); PLATELET COUNT (AUTO) 60 K/uL (130-400); RED BLOOD CELL COUNT(AUTO) 2.75 MIL/uL (4.00-5.50); RED CELL DISTRIBUTION WIDTH 22.7 % (11.0-15.5); WHITE BLOOD COUNT (AUTO) 12.5 K/uL (4.8-10.8)
[2020-04-04 06:29] LABS: ALBUMIN 1.7 g/dL (3.5-5.0); BILIRUBIN,TOTAL 7.7 mg/dL (0.2-1.0); TOTAL PROTEIN, SERUM 5.4 g/dL (6.0-8.3)
--- NOTE | 2020-04-04 09:53 | NUR ---
2nd Paracentesis Received report from Jose M in Radiology. Paracentesis performed to [facility], 3.8 L of blood-tinged fluid removed, no order to send for pathology of fluid. Patient complaint of pain to Lower extremities and will need pain medication when arrives to floor.
--- NOTE | 2020-04-04 09:57 | NUR ---
U/S GD PARACENTESIS PROCEDURE PERFORMED BY DR Stephania BENNETT. PUNCTURE SITE LUQ AND PATIENT TOLERATED PROCEDURE WELL. TOTAL REMOVED 3.8 LITERS OF BLODDY FLUID. END OF PROCEDURE AT 0945. CATHETER REMOVED AND DRESSING APPLIED. NO BLEEDING NOTED. REPORT GIVEN TO DESIREE SAINI AND PATIENT TRANSPORTED TO [facility] VIA BED AT 1000. AAO X3 WITH NO C/O PAIN.
[2020-04-04] MEDS: PANTOPRAZOLE SODIUM 40 MG TABLET.DR PO SCH (10:12)
[2020-04-04] MEDS: POLYETHYLENE GLYCOL 3350 17 GM POWD.PACK PO SCH (10:13)
--- NOTE | 2020-04-04 10:15 | NUR ---
Patient returned from paracentesis, requesting pain medication for pain of 6 to lower legs. Tramadol administered for pain. Dressing to LLQ clean and dry. Patient assisted to lt lateral side for comfort from chronic back pain. Bed low, locked, post op vitals initiated. BP 114/62, HR 81, R20, 96% O2Sa on 2L NC. Bed low, locked, call [facility] within reach. at bedside.
--- NOTE | 2020-04-04 11:58 | NUR ---
s/p Paracentesis/Low BP Notified Dr. Castro of asymptomatic hypotension after 3.8 L removed from paracentesis with no order for albumin. Current BP 92/43, lowest BP reported 89/39. Received telephone order for albumin 25% to be administered now. Order placed and pharmacy sent written order.
[2020-04-04] MEDS: PHARMACY COMMUNICATION MISC SCH ×2 (12:30→16:30)
--- NOTE | 2020-04-04 13:10 | NUR ---
Albumin administration Received albumin from pharmacy, administered to JOHNY by gravity with tubing provided. BP 100/57, hr 89. Patient states she would like oxygen nasal cannula removed. O2Sa at 98% with 2 L. Removed nasal cannula, O2Sa 95% on room air. Patient complained of generalized body pain of 6 on 0-10 pain scale. Administered Tylenol with codeine per pain scale order. Patient repositioned to Lt lateral side. Bed low, locked. Call [facility] in reach, room near nurses station. Spouse at bedside.
--- NOTE | 2020-04-04 13:45 | NUR ---
SUBSTANCE ABUSE Sw was unable to meet with pt before discharge. Addendum: 04/04/20 at 1347 by JHOANA WRIGHT wrong pt. please disregard note
[2020-04-04] MEDS ORDERED: ALBUMIN (HUMAN) 25% 100 ML IV ONE (13:50)
[2020-04-04] MEDS ORDERED: SODIUM CHLORIDE 0.9% 250 ML IV ONE (16:05)
--- NOTE | 2020-04-04 16:17 | NUR ---
Aid reported BP of 79/39 laying. Rechecked blood pressure, 89/40 with heart rate of 93. Patient states feels unwell. Notified Dr. Castro of hypotensive state. Received telephone order to give bolus of 250 mL. Bolus initiated.
--- NOTE | 2020-04-04 16:30 | NUR ---
s/p 250 mL Bolus Recheck BP status 111/64, HR97. Patient states still doesn't feel well, spouse reports patient hasn't eaten all day. Patient stated she would not eat another broth from Full Liquid Diet. Received telephone order from Dr. Castro for lactic acid and H&H draw and Renal Dialysis diet.
--- NOTE | 2020-04-04 16:30 | NUR ---
Blood Transfusion Blood unit verified with Mae Hutchison RN. Tranfusion initiated, systolic BP in 90's. Pressure continued to drop to 80's systolic. Notified Dr. Castro of pressure 84/58, hr 93. Received orders to transfer to ICU to be maintained on vasopressors for hypotension, shock and anemia. Per Dr. Castro, Dr. Reece accepted patient to critical care. Notified daughter of plans to transfer. Daughter to notify patient's spouse. Patient to be transferred to ICU Rm. 216. Addendum: 04/04/20 at 2030 by YENY DWYER RN RN Incorrect start time for transfusion, transfusion initiated at 1830.
[2020-04-04 17:37] LABS: HEMATOCRIT 17.3 % (36-48)
[2020-04-04] MEDS: ONDANSETRON HCL 4 MG/2 ML VIAL IV PRN (17:38)
--- NOTE | 2020-04-04 17:43 | NUR ---
Critical labs: Notified Dr. Castro of critical values Lactic 8.3, hemoglobin 5.7 and hematocrit 17.3. Received order for 1 unit PRBC to be transfused. Order placed. Notified blood bank, unit to be ready in 10 minutes.
[2020-04-04] MEDS ORDERED: NOREPINEPHRINE 4MG/NS 250ML 250 ML IV SCH (19:15)
--- NOTE | 2020-04-04 19:15 | NUR ---
Patient transferred to ICU Rm. 216 via hospital bed and cardiac monitoring. Sinus rhythm in 90's, on non-rebreather with O2. Respiration tachypneic. Blood transfusing to JOHNY. Arrived to Rm 216, responsive to sternal rub. Report provided to ICU nurse Britton. Daughter notified of room transfer.
--- NOTE | 2020-04-04 19:30 | NUR ---
1930 ADMISSION PT ADMIT FROM 3RD FLOOR ADMIT 216 PT DNR STATUS HOSPITALIST REQUEST TRANSFER FOR LOW BLOOD PRESSURE REQUIRE VASOPRESSOR SUPPORT. PT ARRIVED LETHARGIC BUT RESPONSIVE TO STIMULI ON NON REBREATHER O2 RECEIVING BLOOD TRANSFUSION. PT HYPOTENSION POST TRANSFUSION. LEVOPHED INITIATED. 2104 DR. STEVEN SALAZAR AT BEDSIDE WITH FAMILY UPDATED ON PT CONDITION, SPOKE WITH SPOUSE AND DAUGHTER. FAMILY DECISION TO WITHDRAWAL CARE WITH COMFORT MEASURES. NEW ORDERS RECEIVED AND CARRIED OUT. PT IN NO APPARENT DISTRESS AT THIS TIME. 2227 PT TIME OF . COVER ASSEMBLER DJ. NIXON AT [facility] TO PRONOUNCE. [facility] (REP [facility] NICHOLE)[facility] (REP [place] LA [facility]) NOTIFIED # REF [id number]. WILL CONTACT SPOUSE FOR FURTHER INFORMATION. DOCUMENTATION OF COMPLETE WITH COVER ASSEMBLER DAPHNE NIXON. ALL BELONGINGS TAKEN BY FAMILY MEMBERS. POST MORTEM CARE COMPLETE PT [place] [facility]
[2020-04-04] MEDS ORDERED: MORPHINE SULFATE 2 MG/ML 1ML SYG IVP PRN (21:30)
[2020-04-04] MEDS ORDERED: LORAZEPAM 2 MG/ML 1 ML VIAL IVP PRN (21:30)
--- NOTE | 2020-04-04 22:28 | NUR ---
SUMMONED BY STAFF TO PATIENT'S ROOM. PT. SUPINE IN BED WITH FAMILY MEMBERS AT BEDSIDE. NO BREATH SOUNDS, HEART TONES OR BLOOD PRESSURE NOTED ON AUSCULTATION. DIRECTOR OF AVIATION REVEALS ASYSTOLE. PUPILS FIXED AND DILATED. TIME OF : 2227
== END 2020-04-04 22:28 | disposition expired | DRG 673 ==
LOC: EDH 14:17 → EDHIP 16:45 → 3BH 21:55 → 3AH 03-26 18:03 → 2CH 04-04 19:18
PROVIDERS: ADMIT Family Medicine; ATTEND Family Medicine
PROC: 0DB68ZX Excision of Stomach, Via Natural or Artificial Opening Endoscopic, Diagnostic (ICD-10-PCS; 2020-03-24)
PROC: 5A1D70Z Performance of Urinary Filtration, Intermittent, Less than 6 Hours Per Day (ICD-10-PCS; principal; 2020-03-27)
PROC: 02HV33Z Insertion of Infusion Device into Superior Vena Cava, Percutaneous Approach (ICD-10-PCS; 2020-03-27)
PROC: B548ZZA Ultrasonography of Superior Vena Cava, Guidance (ICD-10-PCS; 2020-03-27)
PROC: 5A1D70Z Performance of Urinary Filtration, Intermittent, Less than 6 Hours Per Day (ICD-10-PCS; 2020-03-28)
PROC: 5A1D70Z Performance of Urinary Filtration, Intermittent, Less than 6 Hours Per Day (ICD-10-PCS; 2020-03-29)
PROC: 5A1D70Z Performance of Urinary Filtration, Intermittent, Less than 6 Hours Per Day (ICD-10-PCS; 2020-03-31)
PROC: 0W9G3ZZ Drainage of Peritoneal Cavity, Percutaneous Approach (ICD-10-PCS; 2020-03-31)
PROC: 0JH63XZ Insertion of Tunneled Vascular Access Device into Chest Subcutaneous Tissue and Fascia, Percutaneous Approach (ICD-10-PCS; 2020-04-03)
PROC: 5A1D70Z Performance of Urinary Filtration, Intermittent, Less than 6 Hours Per Day (ICD-10-PCS; 2020-04-03)
PROC: 30233R1 Transfusion of Nonautologous Platelets into Peripheral Vein, Percutaneous Approach (ICD-10-PCS; 2020-04-03)
PROC: 30233N1 Transfusion of Nonautologous Red Blood Cells into Peripheral Vein, Percutaneous Approach (ICD-10-PCS; 2020-04-03)
PROC: 02H633Z Insertion of Infusion Device into Right Atrium, Percutaneous Approach (ICD-10-PCS; 2020-04-03)
PROC: B5181ZA Fluoroscopy of Superior Vena Cava using Low Osmolar Contrast, Guidance (ICD-10-PCS; 2020-04-03)
PROC: B548ZZA Ultrasonography of Superior Vena Cava, Guidance (ICD-10-PCS; 2020-04-03)
PROC: 0W9G3ZZ Drainage of Peritoneal Cavity, Percutaneous Approach (ICD-10-PCS; 2020-04-04)
DX: I12.0 Hypertensive chronic kidney disease with stage 5 chronic kidney disease or end stage renal disease (principal); G92 Toxic encephalopathy; K72.00 Acute and subacute hepatic failure without coma; N18.6 End stage renal disease; N17.9 Acute kidney failure, unspecified; E87.1 Hypo-osmolality and hyponatremia; C90.00 Multiple myeloma not having achieved remission; E87.2 Acidosis; D61.818 Other pancytopenia; R18.8 Other ascites; N13.6 Pyonephrosis; D64.9 Anemia, unspecified; R74.8 Abnormal levels of other serum enzymes; D69.6 Thrombocytopenia, unspecified; K29.70 Gastritis, unspecified, without bleeding; E03.9 Hypothyroidism, unspecified; E87.5 Hyperkalemia; K20.9 Esophagitis, unspecified; K59.00 Constipation, unspecified; K74.60 Unspecified cirrhosis of liver; Z96.652 Presence of left artificial knee joint; K52.9 Noninfective gastroenteritis and colitis, unspecified; R62.7 Adult failure to thrive; T38.0X5A Adverse effect of glucocorticoids and synthetic analogues, initial encounter; Z51.5 Encounter for palliative care; Z66 Do not resuscitate; Z93.6 Other artificial openings of urinary tract status; Z99.2 Dependence on renal dialysis; Z85.3 Personal history of malignant neoplasm of breast; Z87.891 Personal history of nicotine dependence; Z95.2 Presence of prosthetic heart valve; Z91.15 Patient's noncompliance with renal dialysis; Z90.12 Acquired absence of left breast and nipple; Z90.710 Acquired absence of both cervix and uterus; Y92.89 Other specified places as the place of occurrence of the external cause; Z82.5 Family history of asthma and other chronic lower respiratory diseases; Z80.3 Family history of malignant neoplasm of breast; Z84.89 Family history of other specified conditions; Z82.0 Family history of epilepsy and other diseases of the nervous system
CPT/HCPCS: 36415; 36430; 36556; 36558; 43239; 49083; 71045; 74021; 74176; 74181; 76705; 77001; 80048; 80053; 80061; 80074; 80076; 80202; 81001; 82040; 82042; 82150; 82247; 82248; 82270; 82550; 82565; 82728; 82977; 83036; 83540; 83550; 83605; 83615; 83690; 84100; 84157; 84484; 84520; 85014; 85018; 85025; 85027; 85610; 85730; 86701; 86704; 86706; 86850; 86900; 86901; 86922; 87071; 87076; 87077; 87088; 87186; 87205; 87340; 87390; 87520; 89051; 90935; 93005; 94760; A4606; C1750; C1752; G0378; J0610; J1100; J1170; J1644; J2250; J2270; J2405; J2704; J3010; J3370; J3490; J7030; J7050; P9016; P9034; P9046; Q0163